=== PATIENT | male | born 1975 | race Caucasian/White ===

== ENCOUNTER 2025-07-22 16:05 | Inpatient (IN) | payer BC, SELFPAY ==
[2025-07-22] VITALS (10 sets, daily range): BP systolic 162–271; BP diastolic 105–184; PULSE 74–97; RESP 16–23; TEMP -13.3–37.2; O2SAT 95–97; BMI 47.5
--- NOTE | 2025-07-22 16:22 | EKG_ITS ---
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
--- NOTE | 2025-07-22 16:23 | PD.EDRME ---
Rapid Medical Screening Exam RME Arrival date/time: 07/22/25 16:05 49-year-old male with a history of hypertension presents to the emergency room with a chief complaint of chest discomfort, headaches and elevated blood pressure readings at home. Patient states he has been out of his blood pressure medication for a couple of months. I have greeted and performed a focused initial assessment of this patient. A comprehensive ED assessment and evaluation of the patient, analysis of all test results, and completion of the medical decision making process will be conducted by additional ED providers. Chief Complaint: General Adult/Misc Complain Time Seen by Provider: 07/22/25 16:18 Vital signs reviewed by provider: Yes
--- NOTE | 2025-07-22 16:37 | XR_ITS ---
EXAMINATION: AP chest single view TECHNIQUE: AP portable upright chest single view Date and time: July 22, 2025, 1644 hours INDICATIONS: Onset shortness of breath today with hypertension. FINDINGS: Mild prominence cardiac contour. No pneumonia or pulmonary edema. The osseous structures are intact IMPRESSION: No pneumonia or pulmonary edema
--- NOTE | 2025-07-22 16:40 | EDNOTE_ITS ---
ED General RME/HPI General Chief complaint: General Adult/Misc Complain Stated complaint: BP high Time Seen by Provider: 07/22/25 16:18 Arrival date/time: 07/22/25 16:05 CC: Headaches HPI ongoing for the past 3 months but has been out of his antihypertension meds for the past 5 months. Patient also states he has had some wavy vision but no floaters, patient thinks his last medications were losartan and metoprolol poorly. Patient has an allergy to amlodipine. Patient denies chest pain shortness of breath difficulty breathing nausea vomiting diarrhea. RME / HPI RME / HPI narrative: 07/22/25 16:05 49-year-old male with a history of hypertension presents to the emergency room with a chief complaint of chest discomfort, headaches and elevated blood pressure readings at home. Patient states he has been out of his blood pressure medication for a couple of months. I have greeted and performed a focused initial assessment of this patient. A comprehensive ED assessment and evaluation of the patient, analysis of all test results, and completion of the medical decision making process will be conducted by additional ED providers. Related Data Allergies Allergy/AdvReac Type Severity Reaction Status Date / Time amlodipine Allergy Unknown Verified 07/22/25 16:09 Past Medical History Social History SMOKING STATUS: Never smoker ED Exam Narrative Physical exam: [General: Morbidly obese not in any acute distress Head normocephalic HEENT: Eyes pupils are PERRLA EOMs are intact mouth pink moist membranes uvula is midline swallow symmetrical phonation is normal. All of the subsystems of HEENT are within acceptable limits Neck is supple nontender Chest equal chest rise nontender to palpation Respiratory: Clear to auscultation no wheezes crackles or rubs CV: Rate rhythm is regular no murmurs rubs or clicks Abdomen is distended secondary to body habitus soft nontender no masses positive bowel sounds all 4 quadrants Back: No CVA tenderness no spinous process tenderness from cervical spine thoracic and lumbar spine Skin: Venous insufficiency type skin noted in the lower extremities just proximal to the ankles. No open lesions to the lower extremities. Otherwise skin is intact no petechiae rash induration ulceration or crepitus Extremities: Moving all extremity against resistance cap refill less than 2 seconds neurosensory intact nonpitting edema Neuro: Awake alert oriented x3 Glascow coma 15 no focal deficits] Course Course Course Narrative: Blood pressure was decreased by 25%. Creatinine 1.62+ protein in the urine. No other acute findings patient continues to have a mild headache was given 1 g of Tylenol. This, I discussed the patient's case with the resident for Dr. Smalls agrees to accept the patient for admission for hypertensive emergency. Quality Measures none Orders Category Date Time Status EKG (ED ONLY) *Do not use* NOW Care 07/22/25 16:22 Completed Saline [Insert IV] NOW Care 07/22/25 16:38 Active EKG (ED Only) Stat Exams 07/22/25 16:22 Draft XR chest 1V Stat Exams 07/22/25 16:37 Completed B-Type Natriuretic Peptide Stat Lab 07/22/25 16:39 Completed CBC Stat Lab 07/22/25 16:39 Completed Comprehensive Metabolic Panel Stat Lab 07/22/25 16:39 Completed Drug Screen,Urine Stat Lab 07/22/25 18:20 Completed LDH (Lactate Dehydrogenase) Stat Lab 07/22/25 16:39 Completed Magnesium Stat Lab 07/22/25 16:39 Completed Partial Thromboplastin Time Stat Lab 07/22/25 16:39 Completed Prothrombin Time with INR Stat Lab 07/22/25 16:39 Completed Troponin I Stat Lab 07/22/25 16:39 Completed Urinalysis, C/S if Indicated Stat Lab 07/22/25 18:20 Completed Acetaminophen Tab [Tylenol ES Tab] Med 07/22/25 18:42 Discontinued 1,000 mg PO X1 ONE Labetalol IV [Trandate IV] Med 07/22/25 17:45 Discontinued 10 mg IVP X1 ONE hydrALAZINE INJ [Apresoline Inj] Med 07/22/25 16:38 Discontinued 20 mg IVP X1 ONE Vital Signs Vital signs: Vital Signs Temperature 98.9 F 07/22/25 16:22 Pulse Rate 97 07/22/25 16:22 Respiratory Rate 18 07/22/25 16:22 Blood Pressure 247/160 H 07/22/25 16:22 Pulse Oximetry (%) 97 07/22/25 16:22 Oxygen Delivery Method Room Air 07/22/25 16:22 Discharge Plan Plan Patient Disposition: Other Care w/in Hosp ([facility]) Prescriptions/Referrals Referrals: No Primary/Family,Physician [Primary Care Provider] - In 1 week Problem List Clinical Impression: Hypertensive emergency, Headache Patient/Caregiver Discharge Instructions Print Language: South Korean Stand Alone Forms: Anneliese Award Info., Patient Portal Info Letter ELIAS/CATHI Supervising Physician JEANETTE Supervising Physician: Juan Pablo Gleason ENP [facility] Clinical Information Provided by: patient Medical Records reviewed [facility] Meds/Rx considered, not ordered None Labs/Rad/Tests considered, not ordered None Chronic Illness/Social Conditions Explain: Obesity hypertension with medication noncompliance EKG Interpretation EKG #1: EKG Interpretation: EKG performed at 1626 shows a ventricular rate of 99 [place] interval 156 QRS of 84 QTc of 408 this is sinus rhythm. Labs Labs: interpreted by il Lab(s) Interpretation(s): CBC shows no acute leukocytosis anemia thrombocytopenia Coags within acceptable limits CMP shows creatinine of 1.6 glucose of 110 no other electrolyte imbalances no transaminitis or T. bili elevation LDH at 355 Troponin and BNP are within acceptable limits. Imaging Imaging interpretation: interpreted by il Imaging Interpretation(s): Chest x-ray is unremarkable. Medication Administration(s) Medication Administration History Discontinued Medications Acetaminophen (Acetaminophen 500 Mg Tablet) 1,000 mg PO X1 ONE Stop: 07/22/25 18:43 Last Admin: 07/22/25 18:53 Dose: 1,000 mg Documented By: LP Hydralazine HCl (Hydralazine Inj 20 Mg/Ml Vial) 20 mg IVP X1 ONE Stop: 07/22/25 16:39 Last Admin: 07/22/25 16:49 Dose: 20 mg Documented By: BJORN Labetalol HCl (Labetalol Inj 5 Mg/Ml Vial 20 Ml) 10 mg IVP X1 ONE Stop: 07/22/25 17:46 Last Admin: 07/22/25 18:05 Dose: 10 mg Documented By: LP
[2025-07-22] MEDS: hydrALAZINE INJ 20 MG/ML VIAL IVP (16:49)
[2025-07-22 17:00] LABS: Basophils # (Auto) 0.1 Thou/mm3 (0.0-0.2); Basophils % (Auto) 1 % (0-2.5); Eosinophils # (Auto) 0.2 Thou/mm3 (0.0-0.5); Eosinophils % (Auto) 2 % (0-10); Hematocrit 45.6 % (41.0-53.0); Hemoglobin 16.5 g/dL (13.5-16.0); Immature Granulocytes Auto 0.03 Thou/mm3 (0.00-0.00); Lymphocytes # (Auto) 2.4 Thou/mm3 (1.0-4.8); Lymphocytes % (Auto) 24 % (10-50); Mean Corpuscular HGB Conc 36.2 g/dl (31.0-37.0); Mean Corpuscular Hemoglobin 31.7 pg (25.0-35.0); Mean Corpuscular Volume 88 fL (80-100); Monocytes # (Auto) 0.8 Thou/mm3 (0.0-0.8); Monocytes % (Auto) 8 % (0-12); Neutrophils # (Auto) 6.4 Thou/mm3 (1.8-7.7); Neutrophils % (Auto) 65 % (37-80); Nucleated Red Blood Cell # 0.00 Thou/mm3 (0.00-0.00); Nucleated Red Blood Cell % 0 /100 WBC (0); Platelet Count 195 Thou/mm3 (140-440); RDW Standard Deviation 38.1 fL (35.1-43.9); Red Blood Count 5.21 Miln/mm3 (4.50-5.90); White Blood Count 9.8 Thou/mm3 (3.8-10.6)
[2025-07-22 17:04] LABS: INR 1.0 (0.9-1.3); Partial Thromboplastin Time 29.3 Seconds (22.0-36.0); Prothrombin Time 10.5 Seconds (9.0-12.2)
[2025-07-22 17:07] LABS: Alanine Aminotransferase 15 U/L (10-49); Albumin, Serum 4.3 gm/dL (3.5-5.0); Albumin/Globulin Ratio 1.3 (1.2-2.2); Alkaline Phosphatase 96 U/L (46-116); Anion Gap 10 (7-16); Aspartate Amino Transferase 30 U/L (0-34); BUN/Creatinine Ratio 9 Ratio (12-20); Bilirubin,Total 0.9 mg/dL (0.3-1.2); Blood Urea Nitrogen 15 mg/dL (9-23); Calcium 9.4 mg/dL (8.3-10.6); Calcium (Corrected) 9.4 mg/dL (8.5-10.1); Carbon Dioxide 29.2 mMol/L (20.0-31.0); Chloride 101 mMol/L (98-107); Creatinine (Component) 1.6 mg/dL (0.6-1.3); Globulin 3.2 gm/dL (2.3-3.5); Glucose 110 mg/dL (74-106); LDH (Lactate Dehydrogenase) 355 U/L (120-246); Magnesium 2.0 mg/dL (1.6-2.6); Osmolality,Calculated 281 (275-295); Potassium 3.6 mMol/L (3.4-5.1); Sodium 140 mMol/L (136-145); Total Protein 7.5 gm/dL (5.7-8.2); Troponin I < 0.020 ng/mL (0.0-0.045); eGFR 53 See Note
[2025-07-22 17:22] LABS: B-Type Natriuretic Peptide 27 pg/mL (0-100)
[2025-07-22] MEDS: LABETALOL INJ 5 MG/ML VIAL 20 ML 10 MG IVP (18:05)
[2025-07-22 18:29] LABS: Collection Type, Urine Clean Catch; Squamous Epithelial Cell,Urine 0 /hpf (0-5)
[2025-07-22 18:42] LABS: Amphetamine/Methamp Scrn,U Negative (Negative); Barbiturate Screen,Urine Negative (Negative); Benzodiazepines Screen,Urine Negative (Negative); Benzoylecgonine Screen, Ur Negative (Negative); Fentanyl Screen,Urine Negative (Negative); Opiate Screen,Urine Negative (Negative); THC Screen,Urine Negative (Negative)
[2025-07-22] MEDS: ACETAMINOPHEN 500 MG TABLET 1000 MG PO (18:53)
[2025-07-22 18:59] LABS: Bilirubin,Urine Negative (Negative); Blood,Urine Trace (Negative); Clarity,Urine Clear (Clear/Hazy); Color,Urine Lt-Yellow (Lt Yel-Yel); Culture Indicated,Urine Not Indicated; Glucose, Urine Negative (Negative); Ketones,Urine Trace (Negative); Leukocyte Esterase,Urine Negative (Negative); Nitrite,Urine Negative (Negative); PH,Urine 7.5 (5.0-7.0); Protein,Urine 2+ (Neg - Trace); RBC,Urine 9 /hpf (0-3); Specific Gravity,Urine 1.013 (1.001-1.035); Urobilinogen,Urine Negative mg/dL (0.0-1.0); WBC,Urine < 1 /hpf (0-5)
--- NOTE | 2025-07-22 19:53 | ECHO_ITS ---
Transthoracic Echo Report Ht (in): 74 Wt (lb): 370 Exam Location: [facility] Status: Emergency Chemist Internship: Magdalena Vásquez Indications: Procedure Performed: BP: 198 / 139 HR: 63 MEASUREMENTS (Male / Female) Normal Values 2D ECHO LV Diastolic Diameter PLAX 5.2 cm 4.2 - 5.9 / 3.9 - 5.3 cm LV Systolic Diameter PLAX 3.4 cm IVS Diastolic Thickness 1.3 cm 0.6 - 1.0 / 0.6 - 0.9 cm LVPW Diastolic Thickness 1.4 cm 0.6 - 1.0 / 0.6 - 0.9 cm LV Relative Wall Thickness 0.5 LVOT Diameter 2.1 cm LA Volume Index 23.5 cm?/m? 16 - 28 cm?/m? Ascending Aorta Diameter 3.2 cm M-MODE AV Cusp Separation MM 1.5 cm DOPPLER AV Peak Velocity 145.0 cm/s AV Peak Gradient 8.4 mmHg AV Mean Gradient 5.0 mmHg AV Velocity Time Integral 32.3 cm LVOT Peak Velocity 115.0 cm/s LVOT Peak Gradient 5.3 mmHg LVOT Velocity Time Integral 28.3 cm LVOT Cardiac Index 2031.0 cm?/min?m? AV Area Cont Eq vti 3.0 cm? AV Area Cont Eq pk 2.7 cm? MV Area PHT 3.7 cm? Mitral E Point Velocity 84.9 cm/s Mitral A Point Velocity 110.0 cm/s Mitral E to A Ratio 0.8 LV E' Lateral Velocity 6.5 cm/s Mitral E to LV E' Lateral Ratio 13.0 LV E' Septal Velocity 7.8 cm/s Mitral E to LV E' Septal Ratio 10.8 TR Peak Velocity 159.5 cm/s TR Peak Gradient 10.2 mmHg PV Peak Velocity 100.0 cm/s PV Peak Gradient 4.0 mmHg FINDINGS Left Ventricle Normal left ventricular size, wall thickness, systolic function with no obvious regional wall motion abnormalities.there is grade I diastolic dysfunction of the left ventricle (impaired relaxation pattern). The ejection fraction is visually estimated at 55-60%. Right Ventricle The right ventricle is normal in size and systolic function. Left Atrium The left atrial cavity size is moderately increased. Right Atrium The right atrial cavity size is moderately increased. Atrial Septum The interatrial septum appears normal with no evidence of a shunt. Aorta The aorta is normal by two-dimensional, color flow and Doppler interrogation. Mitral Valve The mitral valve is normal by two-dimensional, color flow and Doppler interrogation. Trace mitral regurgitation. Aortic Valve The aortic valve is trileaflet and normal by two-dimensional, color flow and Doppler interrogation. There is no significant aortic valve regurgitation. Tricuspid Valve The tricuspid valve is normal by two-dimensional, color flow and Doppler interrogation. There is trace tricuspid valve regurgitation. Pulmonic Valve The pulmonic valve is not well visualized. There is no significant pulmonic valve regurgitation. Vessels The pulmonary artery appears normal. The inferior vena cava pulmonary and hepatic veins appear normal. Pericardium There is a tiny, hemodynamically insignificant pericardial effusion without cardiac tamponade CONCLUSIONS Indication: Hx afib Normal left ventricular size and function. Grade I diastolic dysfuntion. Estimated EF 55-60% Normal right ventricular size and function. Normal RVSP. Moderately dilated LA and mildly dilated RA Trace mitral and trace tricuspid regurgitation noted. Markus Abrahamumanevans (Electronically Signed) Final Date: 24 July 2025 19:04
--- NOTE | 2025-07-22 20:09 | ESHP_ITS ---
Documentation for date of: 07/22/25 [facility] History of Present Illness History of present illness: Mr. Gardner is a 49 y/o male with PMH afib, HTN, chronic venous insufficiency who presented to the ED 07/22 with elevated BP and headache. Associated with wavy vision and floaters, frontal b/l headache that is throbbing and constant, progressively worsening over 2 months. Noticed sBP >240 at home, though he does not take his BP regularly at home. Patient switched insurance, used to see [place] providers, but has not seen a PCP in ~4-5 months, has not taken meds in this time frame. Previously saw PCP every 6 months. Denies jaw pain/claudication, paresthesias, weakness, dizziness, speech deficits, confusion, chest pain/pressure, urinary sx, nausea, vomiting, shortness of breath, dyspnea. Denies pmhx of [place], stroke/TIA, DVT, CHF. Denies recent illness/hospitalization, acute head injury. Patient has a hx of afib, previously on metoprolol, but denies being on blood thinner. He occasionally gets palpitations that last <5 seconds, several times per day, not associated strictly with activity or rest, for several years. Has never noticed his HR >110. Notes a previous episode of BRADY? requiring short hospitalization years ago. ED course: Afebrile. BP 247/65 --> 271/184 --> 209/139, HR WNL. Tachypneic to low 20s. spO2 appropriate on RA. Labs significant for hgb 16.5, Cr 1.6, eGFR 53, LDH 355. Coags, troponin, BNP, UDS, CXR unremarkable. EKG NSR HR 99, QTc 452. Given Hydralazine 20 mg IV, Labetalol 10 mg IV, Tylenol 1 g PO. PMHx: afib, HTN, chronic venous insufficiency Allergies: Amlodipine Home meds: Was taking Metoprolol and Losartan previously, has not taken in 4-5 months. Never been on Eliquis of other blood thinner. SgHx: none SHx: Denies smoking, EtOH, recreational drug use. Lives in [place] with his mother, has adult children. 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 FHx: Father - quadruple bypass; brother - throat cancer, Review of Systems Review of Systems Narrative Review of Systems: 14 point ROS negative other than HPI Exam Vital Signs Temp Pulse Resp BP Pulse Ox O2 Del Method 98.9 F 87 16 218/140 H 97 Room Air 07/22/25 19:21 07/22/25 19:21 07/22/25 19:21 07/22/25 19:21 07/22/25 19:21 07/22/25 19:21 Narrative Exam General: No acute distress, well nourished Eye: PERRL, EOMI, normal conjunctiva, no scleral icterus HENT: Normocephalic, atraumatic, normal hearing, moist oral mucosa Neck: Supple, non-tender, no JVD, no lymphadenopathy Lungs: Clear to auscultation bilaterally, non-labored respirations, symmetric chest rise, no use of accessory muscles Heart: Normal S1 and S2, no S3 or S4 appreciated. Normal rate and regular rhythm, no murmurs, rubs gallops. 2+ LE pitting edema b/l to lewis Abdomen: Soft, non-tender, non-distended, normal bowel sounds. No guarding or rebound tenderness. Musculoskeletal: Normal range of motion and strength, no tenderness or swelling Skin: Skin is warm, dry, no rashes or lesions. venous stasis dermatitis b/l LE Neurologic: Alert, awake and oriented x3. CN II-XII grossly intact. No focal neuro deficits. No signs of meningeal irritation noted. Psychiatric: Cooperative, appropriate mood and affect Results: Labs 07/22/25 16:39 07/22/25 16:39 Labs: Short CBC 07/22/25 Range/Units 16:39 WBC 9.8 (3.8-10.6) Thou/mm3 Hgb 16.5 H (13.5-16.0) g/dL Hct 45.6 (41.0-53.0) % Plt Count 195 (140-440) Thou/mm3 BMP 07/22/25 16:39 Sodium 140 Potassium 3.6 Chloride 101 Carbon Dioxide 29.2 BUN 15 Creatinine 1.6 H Glucose 110 H Calcium 9.4 Cardiac Enzymes 07/22/25 Range/Units 16:39 Troponin I < 0.020 (0.0-0.045) ng/mL Liver Function 07/22/25 Range/Units 16:39 Total Bilirubin 0.9 (0.3-1.2) mg/dL AST 30 (0-34) U/L ALT 15 (10-49) U/L Alkaline Phosphatase 96 (46-116) U/L Albumin 4.3 (3.5-5.0) gm/dL Urine 07/22/25 Range/Units 18:20 Urine Color Lt-Yellow (Lt Yel-Yel) Urine Clarity Clear (Clear/Hazy) Urine pH 7.5 H (5.0-7.0) Ur Specific Alloy 1.013 (1.001-1.035) Urine Protein 2+ A (Neg - Trace) Urine Glucose (UA) Negative (Negative) Quality Measures Quality Measures none Medications Home Medications and Allergies Allergies Allergy/AdvReac Type Severity Reaction Status Date / Time amlodipine Allergy Unknown Verified 07/22/25 16:09 Visit Medications Acetaminophen (Acetaminophen 325 Mg Tablet) 650 mg PO Q6H PRN PRN Reason: Fever >100.3 Stop: 08/21/25 19:50 Acetaminophen (Acetaminophen 325 Mg Tablet) 650 mg PO Q6H PRN PRN Reason: PAIN SCALE 1-3 (mild Stop: 08/21/25 19:50 Heparin Sodium (Porcine) (Heparin Sod Inj 5000 Unit/Ml Vial) 5,000 unit SC Q8HR STEPHAN Stop: 08/05/25 21:59 Labetalol HCl (Labetalol Inj 5 Mg/Ml Vial 20 Ml) 20 mg IVP X1 ONE Stop: 07/22/25 20:03 Ondansetron HCl (Ondansetron Inj 2 Mg/Ml Inj 2 Ml) 4 mg IVP Q6H PRN; Protocol PRN Reason: NAUSEA OR VOMITING Stop: 08/21/25 19:50 Discontinued Medications Acetaminophen (Acetaminophen 500 Mg Tablet) 1,000 mg PO X1 ONE Stop: 07/22/25 18:43 Last Admin: 07/22/25 18:53 Dose: 1,000 mg Hydralazine HCl (Hydralazine Inj 20 Mg/Ml Vial) 20 mg IVP X1 ONE Stop: 07/22/25 16:39 Last Admin: 07/22/25 16:49 Dose: 20 mg Labetalol HCl (Labetalol Inj 5 Mg/Ml Vial 20 Ml) 10 mg IVP X1 ONE Stop: 07/22/25 17:46 Last Admin: 07/22/25 18:05 Dose: 10 mg Assessment & Plan Plan Mr. Gardner is a 49 y/o male with PMH afib, HTN, chronic venous insufficiency who presented to the ED 07/22 with elevated BP 247/165 and headache. Admitted for hypertensive emergency management. #Hypertensive Urgency vs emergency Initial presentation: b/l frontal headache, acute vision changes (wavy vision, floaters) BP in ED: 247/165 --> 271/184 --> 209/139 MAP in ED: 189 --> 213 --> 166 HR in ED: WNL (<100) End organ damage: BRADY (Cr 1.6, eGFR 53) LDH 355. No s/sx stroke, intracerebral hemorrhage, acute aortic dissection, acute coronary syndrome. Patient has b/l LE pitting edema i/s/o chronic venous insufficiency with BNP unremarkable, no shortness of breath/orthopnea, unlikely CHF. Given Hydralazine 20 mg IV, Labetalol 10 mg IV in ED Plan: - Labetalol IV 10-20 mg over 1-2 minutes followed by 20-80 mg q10min until target BP reached. - MAP goal: Reduce MAP gradually by ~10%-20% over first hour, then by additional 5-15% over next 23 hours, unless there is a compelling indication (ie. acute aortic dissection, severe preeclampsia, eclampsia) for more rapid BP and HR control. (maintain MAP 140-182). - CT head not indicated at this time given no focal neuro findings #BRADY versus CKD Most likely prerenal given HTN emergency Cr 1.6, eGFR 53 No hx CKD, no previous Cr recorded in EMR Plan: - Management of HTN emergency as above - CTM with daily BMP - Hold on IVF given HTN emergency - Avoid NSAIDs, other nephrotoxic agents - Pending Renal US - Pending 24 hr urine protein, electrolytes, Cr #Hx afib? Not seen on EKG, HR WNL. Previously rx Metoprolol, never on blood thinners. Has occasional palpitations, lasts <5 seconds, several times per day. CHADS-VASC: 2 --> 2.2% stroke risk per year, 2.9% TIA/stroke/systemic embolism HAS-BLED: 1 --> 3.4% risk bleeding Plan: - Continuous cardiac monitoring - Pending echo - Heparin DVT ppx. Can consider starting Eliquis #Chronic venous insufficiency b/l LE 2+ pitting edema, venous stasis dermatitis present. No open ulcers, no s/sx infection Plan: - CTM, f/u outpatient Checklist Dispo: Admit to tele for continuous cardiac monitoring Diet: Cardiac Bowel Reg: n/a VTE ppx: heparin subQ GI ppx: n/a Pain mgmt: Tylenol PRN Code status: full Plan discussed with Dr. Liao and Dr. Slim Thomas MD PGY1 Attending Provider Attestation/Addendum Hadley, Stacey Smalls, , attest that I was physically present for the hartmann portions of the service and evaluated the patient with the resident and I reviewed and discussed the case with the resident and agree with the resident's findings and plans of care as documented above Patient is a 49 yo male with PmHx of ?afib, HTN, chronic venous insufficiency who presented to the ED due to elevated BP and headache. Patient states that he lost his insurance a few months ago and has been unable to seek medical care. He had taken metoprolol and losartan and stopped about 5 months ago after he lost his insurance. Patient states he has been having a mild headache that progressively worse today. He reported some floaters in his vision as well, prompting him to check his BP and noted his systolic to be in the 240s. Upon evaluation in the ED, patient was noted to have elevated BP as high as 271/184. He received hydralazine and labetalol with appropriate decrease of BP with reduction goal under 25-30% of MAP in first several hours. Patient is noted to have a Cr of 1.6 with 2+ proteinuria on UA. No baseline labs to determine if patient has BRADY versus CKD. However, patient likely has underlying CKD due to longstanding HTN and reason for taking losartan in the past. Will admit to telemetry for further workup and management of hypertensive urgency. Patient has no focal neurological deficits. He denies any back or chest pain, shortness of breath, numbness, weakness or dizziness. He is noted to have 2+ pitting pedal edema ascending above his ankles due to chronic venous insufficiency. Patient currently in sinus rhythm. Will continue cardiac monitoring to assess for possible arrhythmias/ afib. . Will restart metoprolol in AM as patient is currently at goal with slow reduction of BP. Will order renal US and obtain 24h urine collection of protein and cr. Will also obtain echocardiogram.
--- NOTE | 2025-07-22 20:33 | XR_ITS ---
Examination: Retroperitoneal ultrasound, complete Technique: Multiple high resolution grayscale images of the retroperitoneum obtained, including kidneys and bladder. Exam date and time: July 22, 2025, 2043 hours INDICATIONS: Severe hypertension beginning 5 years ago FINDINGS: Right kidney 11.9 cm renal cortex 1.8 cm Multiple benign cysts, the largest 4.1 cm Left kidney 11.9 cm renal cortex 2.0 cm Multiple benign cysts, the largest 3.0 cm Moderate renal scar formation bilaterally Contracted urinary bladder Prostate 4.8 x 3.6 x 4.5 cm volume 40.8 cc no prostate nodules IMPRESSION: Moderate bilateral renal parenchymal scar formation No hydronephrosis Prostate volume 40.8 cc no prostate nodules
[2025-07-22] MEDS: LABETALOL INJ 5 MG/ML VIAL 20 ML 20 MG IVP (20:41)
[2025-07-22 21:18] LABS: Chloride,Urine Random 107.0 mMol/L (55.0-125.0); Creatinine MALB Rnd Ur 67 mg/dL (30-125); Potassium,Urine Random 23 mMol/L (12-62); Sodium,Urine Random 141.0 mMol/L (20.0-110.0)
[2025-07-22 21:27] LABS: Microalbumin Creat Ratio 2030 mg/gCrea (<30); Microalbumin, Random Urine 1360 mg/L (0-300)
[2025-07-22] MEDS: HEPARIN SOD INJ 5000 UNIT/ML VIAL SC (23:07)
[2025-07-23] VITALS (13 sets, daily range): BP systolic 171–218; BP diastolic 106–139; PULSE 65–91; RESP 16–20; TEMP 35.9–36.2; O2SAT 97–100; BMI 49.6
[2025-07-23] MEDS: HEPARIN SOD INJ 5000 UNIT/ML VIAL SC ×3 (05:43→21:24)
[2025-07-23 06:14] LABS: Basophils # (Auto) 0.1 Thou/mm3 (0.0-0.2); Basophils % (Auto) 1 % (0-2.5); Eosinophils # (Auto) 0.2 Thou/mm3 (0.0-0.5); Eosinophils % (Auto) 2 % (0-10); Hematocrit 40.5 % (41.0-53.0); Hemoglobin 14.4 g/dL (13.5-16.0); Immature Granulocytes Auto 0.03 Thou/mm3 (0.00-0.00); Lymphocytes # (Auto) 2.5 Thou/mm3 (1.0-4.8); Lymphocytes % (Auto) 29 % (10-50); Mean Corpuscular HGB Conc 35.6 g/dl (31.0-37.0); Mean Corpuscular Hemoglobin 31.6 pg (25.0-35.0); Mean Corpuscular Volume 89 fL (80-100); Monocytes # (Auto) 0.8 Thou/mm3 (0.0-0.8); Monocytes % (Auto) 9 % (0-12); Neutrophils # (Auto) 5.2 Thou/mm3 (1.8-7.7); Neutrophils % (Auto) 59 % (37-80); Nucleated Red Blood Cell # 0.00 Thou/mm3 (0.00-0.00); Nucleated Red Blood Cell % 0 /100 WBC (0); Platelet Count 162 Thou/mm3 (140-440); RDW Standard Deviation 39.7 fL (35.1-43.9); Red Blood Count 4.56 Miln/mm3 (4.50-5.90); White Blood Count 8.8 Thou/mm3 (3.8-10.6)
[2025-07-23 06:43] LABS: Anion Gap 11 (7-16); BUN/Creatinine Ratio 8 Ratio (12-20); Blood Urea Nitrogen 12 mg/dL (9-23); Calcium 9.1 mg/dL (8.3-10.6); Carbon Dioxide 29.5 mMol/L (20.0-31.0); Cardiac Risk Estimate 4.7 RATIO (4.0-6.7); Chloride 101 mMol/L (98-107); Cholesterol 178 mg/dL (132-200); Creatinine (Component) 1.5 mg/dL (0.6-1.3); Estimated Creatinine Clearance 102.9 mL/min (>60); Glucose 95 mg/dL (74-106); HDL Cholesterol 38 mg/dL (40-60); LDL Cholesterol,Calculated 112 mg/dL (0-130); Magnesium 2.1 mg/dL (1.6-2.6); Osmolality,Calculated 280 (275-295); Phosphorous 4.1 mg/dL (2.4-5.1); Potassium 3.4 mMol/L (3.4-5.1); Sodium 141 mMol/L (136-145); Thyroid Stimulating Hormone 3.03 uIU/mL (0.55-4.78); Triglycerides 142 mg/dL (30-150); eGFR 57 See Note
[2025-07-23 08:27] LABS: Glucose Estimated Average 103 mg/dL (80-131); Hemoglobin A1C 5.2 % Hgb (4.8-6.0)
[2025-07-23] MEDS: METOPROLOL SUCCINATE XL 25 MG TABCR PO (08:30)
--- NOTE | 2025-07-23 09:29 | ESPR_ITS ---
<Statement entered by Rashi Fall MD - 07/23/25 18:12> I saw and examined patient personally and supervised PGY 1 resident, Dr. Obregon formulating a management plan. I agree with the documentation with the exceptions as listed below. Mr. Gardner is a 49 y/o male with PMH afib, HTN, chronic venous insufficiency who presented to the ED 07/22 with elevated BP 247/165 and headache. Admitted for hypertensive emergency management. Problem list: 1. Hypertensive emergency?resolving 2. Hypertension, primary versus secondary 3. Versus CKD 4. History of chronic venous insufficiency 5. Obesity class III 6.? IDA versus OHS Patient has insurance issues and was unable to take his medication for the past 6 months. Presented to the ED with chief complaints of headache and nausea. Highest recorded blood pressure in the emergency department was 271/184. After hydralazine 20 Mg IV x 1 rate improved to 162/105. Upon further questioning patient also revealed that his mother had a history of uncontrolled hypertension as well. Patient's hypertensive emergency is now improving and he was started on metoprolol succinate 25 mg p.o. daily today. Currently BP improved to 171/117. Will monitor kidney function prior to starting losartan tomorrow. Secondary causes of his hypertension are also being worked up with IDA being the most likely cause. Surrounding aldosterone, renin and metanephrines were also ordered. Plan of care discussed with Attending Dr. Saturnino Fall MD PGY 2 Disclaimer: This note was dictated by speech recognition. Minor errors in titrator may be present due to voice recognition software. Documentation for date of: 07/23/25 Subjective Subjective Interval history: Patient was examined at bedside; they appear A&Ox4 and in NAD. Labs today significant for Hgb 16.5 -> 14.4, creatinine 1.6 -> 1.5, and LDH 355. Physical exam was notable for venous stasis dermatitis with a few varicose veins of the proximal BLE but was otherwise benign and unremarkable. UA showed basic pH 7.5, 2+ protein, random microalbumin 1360 (significant protein leakage suggesting kidney damage), random sodium 141.0, microalbumin/creatinine ratio 2030 (strongly indicative of kidney disease, possibly hypertensive nephrosclerosis). Renal US showed moderate bilateral parenchymal scar formation and multiple benign kidney cysts bilaterally. Plan Updates: -Started PO metoprolol succinate Xl 25 mg qD -Started IV hydralazine 10 mg q4HR prn for SBP>180 -Ordered urine random sodium, random potassium, random chloride, random creatinine, random total protein, and urine osmolality -Ordered cortisol, plasma renin activity, and urine metanephrines Exam Vital Signs Temp Pulse Resp BP Pulse Ox O2 Del Method 97.0 F 91 20 198/122 H 100 Room Air 07/23/25 07:58 07/23/25 08:30 07/23/25 07:58 07/23/25 09:08 07/23/25 07:58 07/23/25 07:58 Narrative Exam General: No acute distress, well nourished Eye: PERRL, EOMI, normal conjunctiva, no scleral icterus HENT: Normocephalic, atraumatic, normal hearing, moist oral mucosa Neck: Supple, non-tender, no JVD, no lymphadenopathy Lungs: Clear to auscultation bilaterally, non-labored respirations, symmetric chest rise, no use of accessory muscles Heart: Normal S1 and S2, no S3 or S4 appreciated. Normal rate and regular rhythm, no murmurs, rubs gallops. 2+ LE pitting edema b/l to lewis Abdomen: Soft, non-tender, non-distended, normal bowel sounds. No guarding or rebound tenderness. Musculoskeletal: Normal range of motion and strength, no tenderness or swelling Skin: Skin is warm, dry, no rashes or lesions. venous stasis dermatitis b/l LE Neurologic: Alert, awake and oriented x3. CN II-XII grossly intact. No focal neuro deficits. No signs of meningeal irritation noted. Psychiatric: Cooperative, appropriate mood and affect Objective Labs 07/23/25 05:30 07/23/25 05:30 Labs: Laboratory Results - last 24 hr 07/22/25 07/22/25 07/23/25 16:39 18:20 05:30 WBC 9.8 8.8 RBC 5.21 4.56 Hgb 16.5 H 14.4 D Hct 45.6 40.5 L MCV 88 89 MCH 31.7 31.6 MCHC 36.2 35.6 RDW Std Deviation 38.1 39.7 Plt Count 195 162 D Neut % (Auto) 65 59 Lymph % (Auto) 24 29 [place] % (Auto) 8 9 Eos % (Auto) 2 2 Baso % (Auto) 1 1 Neut # (Auto) 6.4 5.2 Lymph # (Auto) 2.4 2.5 [place] # (Auto) 0.8 0.8 Eos # (Auto) 0.2 0.2 Baso # (Auto) 0.1 0.1 Immature Gran # (Auto) 0.03 H 0.03 H Absolute Nucleated RBC 0.00 0.00 Immature Gran % 0 0 Nucleated RBC % 0 0 PT 10.5 INR 1.0 APTT 29.3 Sodium 140 141 Potassium 3.6 3.4 Chloride 101 101 Carbon Dioxide 29.2 29.5 Anion Gap 10 11 BUN 15 12 Creatinine 1.6 H 1.5 H Estim Creat Clear Calc Not Performed. 102.9 eGFR 53 L 57 L BUN/Creatinine Ratio 9 L 8 L Glucose [address] Glu mg/dL 103 Hemoglobin A1c 5.2 Calculated Osmolality 281 280 Calcium 9.4 9.1 Corrected Calcium 9.4 Phosphorus 4.1 Magnesium 2.0 2.1 Total Bilirubin 0.9 AST 30 ALT 15 Alkaline Phosphatase 96 Lactate Dehydrogenase 355 H Troponin I < 0.020 B-Natriuretic Peptide 27 Total Protein 7.5 Albumin 4.3 Globulin 3.2 Albumin/Globulin Ratio 1.3 Triglycerides 142 Cholesterol 178 LDL Cholesterol, Calc 112 HDL Cholesterol 38 L Cholesterol/HDL Ratio 4.7 TSH 3.03 Ur Collection Type Clean Catch Urine Color Lt-Yellow Urine Clarity Clear Urine pH 7.5 H Ur Specific [place] 1.013 Urine Protein 2+ A Urine Glucose (UA) Negative Urine Ketones Trace Urine Blood Trace Urine Nitrite Negative Urine Bilirubin Negative Urine Urobilinogen (Auto) Negative Ur Leukocyte Esterase Negative Urine RBC 9 H Urine WBC < 1 Ur Squamous Epith Cells 0 Urine Bacteria None Ur Culture Indicated? Not Indicated Ur Random Microalbumin 1360 H Ur Random Sodium 141.0 H Ur Random Potassium 23 Ur Random Chloride 107.0 U Creat (Microalbumin) 67 Microalb/Creat Ratio 2030 H Urine Opiates Screen Negative Urine Fentanyl Screen Negative Ur Barbiturates Screen Negative U Amphetamin/Meth Scrn Negative U Benzodiazepines Scrn Negative U Cocaine Metab Screen Negative U Marijuana (THC) Screen Negative Quality Measures Quality Measures none Assessment & Plan Assessment Current Active Medications: Generic Name Dose Route Start Last Admin Trade Name Freq PRN Reason Stop Dose Admin Acetaminophen 650 mg 07/22/25 19:51 Acetaminophen 325 Mg Tablet PO 08/21/25 19:50 Q6H PRN Fever >100.3 Acetaminophen 650 mg 07/22/25 19:51 Acetaminophen 325 Mg Tablet PO 08/21/25 19:50 Q6H PRN PAIN SCALE 1-3 (mild Heparin Sodium (Porcine) 5,000 unit 07/22/25 22:00 07/23/25 05:43 Heparin Sod Inj 5000 Unit/Ml Vial SC 08/05/25 21:59 5,000 unit Q8HR STEPHAN Administration Labetalol HCl 10 mg 07/23/25 07:51 Labetalol Inj 5 Mg/Ml Vial 20 Ml IVP Q10MIN PRN SBP > 200 Metoprolol Succinate 25 mg 07/23/25 09:00 07/23/25 08:30 Metoprolol Succinate Xl 25 Mg Tabcr PO 08/22/25 08:59 25 mg QDAY STEPHAN Administration Ondansetron HCl 4 mg 07/22/25 19:51 Ondansetron Inj 2 Mg/Ml Inj 2 Ml IVP 08/21/25 19:50 Q6H PRN NAUSEA OR VOMITING Protocol Plan Mr. Gardner is a 49 y/o male with PMH afib, HTN, and chronic venous insufficiency who presented to the ED on 07/22 with elevated BP and headache and was admitted for hypertensive emergency. #Hypertensive emergency i/s/o medication noncompliance, resolving 07/23 admission BP of 247/165 that climbed as high as 271/184 with throbbing headache and signs of end organ damage (visual changes, creatinine 1.6) Had apparently been on home metoprolol and losartan which had adequately controlled his BP but has not taken them for 4-5 months Given IV hydralazine 20 mg and IV labetalol 10 mg in the ED ASCVD Score: 8.9% risk of cardiovascular event in next 10 years, moderate to high intensity statin recommended Rx: -Started PO metoprolol succinate XI 25 mg qD -Started IV hydralazine 10 mg q4HR prn for SBP>180 -Will consider starting losartan tomorrow based on kidney function #Hypertension, uncontrolled, primary vs. secondary Had apparently been on home metoprolol and losartan which had adequately controlled his BP but has not taken them for 4-5 months Currently favor IDA as most likely underlying etiology due to elevated Hgb of 16.5 and patient's risk factors: male sex, large neck, obesity class III, endorses snoring at night and daytime somnolence, and chronic nasal congestion DDx: IDA, renal artery stenosis, pheochromocytoma, primary hyperaldosteronism Dx: -Ordered cortisol labs, results pending -Ordered plasma renin activity, results pending -Ordered urine metanephrines, results pending Rx: -Started PO metoprolol succinate XI 25 mg qD -Started IV hydralazine 10 mg q4HR prn for SBP>180 -Will consider starting losartan tomorrow based on kidney function -Consider outpatient polysomnography to evaluate for IDA #BRADY vs. CKD i/s/o uncontrolled hypertension and recent hypertensive emergency 07/23 admission creatinine 1.6 (baseline unknown), eGFR 53 Suspect some level of CKD due to elevated random microalbumin 1360 and microalbumin/creatinine ratio 2030 which itself is possibly 2/2 hypertensive nephrosclerosis However, it is possible that the elevated creatinine is merely an BRADY 2/2 recent hypertensive emergency Renal US showed moderate bilateral parenchymal scar formation and multiple benign kidney cysts bilaterally No history of diabetes, A1c this admission 5.2 Dx: -Ordered urine random electrolytes, results pending -Ordered urine random creatinine, results pending -Ordered urine random total protein, results pending -Ordered urine osmolality, results pending Rx: -BP control as above -Monitor renal panel #Obesity class III Patient BMI 49.6 Dx: -Ordered lipid panel, results pending #History of atrial fibrillation Patient reports PMH of atrial fibrillation and home medication of metoprolol (which he has not taken in the past 4-5 months) but no Eliquis Rx: -Started PO metoprolol succinate XI 25 mg qD #History of chronic venous insufficiency Patient reports PMH of chronic venous insufficiency On exam, patient was noted to have venous stasis dermatitis of the bilateral lower extremities as well as some varicose veins Rx: -Follow up with outpatient vascular surgery Hospital Management: Disposition: admitted for work-up and management of hypertensive emergency Diet: Cardiac GI Prophylaxis: not indicated Bowel Prophylaxis: Senna DVT Prophylaxis: SC Heparin 5K q8HR CODE STATUS: Full Code I have examined the patient and conferred with my attending, Dr. Matamoros , and my senior resident, Dr. Fall, regarding them. Jorge Obregon, DO PGY-1 Internal Medicine Attending Provider Attestation/Addendum I have examined the patient, reviewed labs and imaging findings, discussed the case with the resident(s), and reviewed entered orders. I agree with the plan of care as outlined in this note, with these additional summaries/recommendations: Patient is a 49-year-old male with a medical history of primary hypertension, obesity, dyslipidemia, and chronic venous insufficiency presents to [facility] emergency department on 07/22/2025 with chief complaint of headache and elevated blood pressure. Patient seen at bedside. He still endorses headache although improved. We will continue Tylenol for now and patient advised to notify nurse if headache is worsening. Patient admitted for hypertensive emergency. Endorgan damage with blurry vision and BRADY. Resume home metoprolol. We will continue to adjust oral regimen as needed and continue IV PRNs. Patient was counseled on medication noncompliance. He was also advised he would benefit from sleep study outpatient. Patient diagnosed with BRADY. On admission creatinine 1.6 and eGFR 53. Most likely related to hypertensive nephrosclerosis. Patient does have elevated micro albumin/creatinine ratio and would benefit from the addition of an BELEN/ARB. Will consider starting tomorrow pending improvement in renal function. Renal ultrasound does show bilateral scar formation. Patient was counseled on weight loss and diet changes. A1c within normal limits. Patient updated on the plan and in agreement. All questions answered to satisfaction. Please see residents note for additional details and management. Dr. Saturnino MD
[2025-07-23] MEDS: ACETAMINOPHEN 325 MG TABLET 650 MG PO ×3 (11:45→23:39)
--- NOTE | 2025-07-23 12:06 | PC.SS ---
Patient Fredy Colindres is a 49 year old male admitted for HTN Emergency. SS met [facility] patient and patient's , Mariama Villatoro at bedside to discuss discharge plan and verify demographic information. Patient reports his is surrogate decision maker, . Patient reports she does not utilize any source of DME to assist with ambulation and does not utilize any source of DME to assist with ambulation. Choice of pharmacy, [facility]. Patient does have a PCP. At time of discharge patient will return back home. will provide transportation. Discharge plan: Home Next of kin: , Mariama Villatoro
--- NOTE | 2025-07-23 15:30 | PC.SS ---
Update Note Blood pressure being monitored, possible discharge home within 1-2 days.
[2025-07-23] MEDS: hydrALAZINE INJ 20 MG/ML VIAL 10 MG IVP ×2 (19:58→23:40)
[2025-07-23] MEDS: LABETALOL INJ 5 MG/ML VIAL 20 ML 10 MG IVP (21:22)
[2025-07-24] VITALS (11 sets, daily range): BP systolic 164–182; BP diastolic 99–122; PULSE 54–95; RESP 10–16; TEMP 35.9–36.1; O2SAT 95–96; BMI 49.9
--- NOTE | 2025-07-24 01:05 | XR_ITS ---
Examination: CT brain head without contrast. 2-D sagittal coronal reconstructions Date and time of exam: July 24, 2025, 0135 hours INDICATIONS: Hypertensive emergency today with worsening headache CTDI: vol (mGy): 62.5 DLP: (mGycm): 1307 Technique: Multiple CT axial sections of the brain have been obtained, 5 mm slice thickness. Contrast has not been administered. 2-D sagittal, coronal reconstructions have been obtained Low dose protocols were performed. One or more of the following dose reduction techniques were used; automated exposure control, adjustment of the mA and/or KV according to patient size, use of iterative reconstruction technique. Findings: No significant ventricular enlargement. Intra-axial or extra-axial hemorrhage density is not seen. No mass effect or midline shift Basal cisterns are not remarkable. Fourth ventricle is midline. Cranial vault intact. Impression: Negative for acute hemorrhage, mass effect or midline shift
[2025-07-24] MEDS: ONDANSETRON INJ 2 MG/ML INJ 2 ML 4 MG IVP ×2 (01:22→04:21)
[2025-07-24] MEDS: MORPHINE SULF INJ 4 MG/ML VIAL 2 MG IVP (01:23)
--- NOTE | 2025-07-24 02:11 | PRELIM_ITS ---
CT scan of the head without intravenous contrast (axial sections with sagittal and coronal reformats) July 24, 2025 0135 hours Clinical history: Worsening headache, vision, hypertension emergency. Radiation Dose: Total exam DLP 1309 mGy/cm. Comparison: No prior study is available for comparison. Findings: There is no evidence of intracranial hemorrhage, mass effect or midline shift. There are periventricular white matter hypodensities, compatible with chronic small vessel ischemia. There is mild volume loss. The calvarium is unremarkable. The mastoid air cells and the visualized paranasal sinuses are clear. There is mild high parietal scalp swelling. Impression: 1. No evidence of intracranial hemorrhage, mass effect or midline shift. 2. Periventricular chronic small vessel ischemia and volume loss. 3. Mild high parietal scalp swelling. 4. Other findings as described above. Suggest clinical correlation and follow up accordingly. Report Electronically Signed By: Michi Dominguez 07/24/2025 2:10:37 AM [EST]
[2025-07-24] MEDS: hydrALAZINE INJ 20 MG/ML VIAL 10 MG IVP ×2 (04:08→09:27)
[2025-07-24] MEDS: KETOROLAC INJ 30 MG/ML VIAL IVP (04:21)
[2025-07-24 06:22] LABS: Creatinine, Urine Volume 2725 mL/24hr (600-1800); Protein Total, Urine Volume 2725 mL/24hr (600-1800)
[2025-07-24 06:27] LABS: Chloride,Urine Random 57.8 mMol/L (55.0-125.0); Creatinine,Random Urine 71 mg/dL (30-125); Potassium,Urine Random 16 mMol/L (12-62); Protein Total, Random Urine 175 mg/dL (1-14); Sodium,Urine Random 82.2 mMol/L (20.0-110.0)
[2025-07-24 06:27] LABS: Creatinine, 24 Hour Urine 1.9 gm/24hr (1.0-2.5); Creatinine,Urine 70 mg/dL (30-125); Protein Total, 24 hr Urine 4714 mg/24hr (<149); Protein Total, Urine 173 mg/dL (1-14)
[2025-07-24 07:52] LABS: Basophils # (Auto) 0.1 Thou/mm3 (0.0-0.2); Basophils % (Auto) 1 % (0-2.5); Eosinophils # (Auto) 0.0 Thou/mm3 (0.0-0.5); Eosinophils % (Auto) 0 % (0-10); Hematocrit 46.9 % (41.0-53.0); Hemoglobin 16.4 g/dL (13.5-16.0); Immature Granulocytes Auto 0.05 Thou/mm3 (0.00-0.00); Lymphocytes # (Auto) 1.8 Thou/mm3 (1.0-4.8); Lymphocytes % (Auto) 18 % (10-50); Mean Corpuscular HGB Conc 35.0 g/dl (31.0-37.0); Mean Corpuscular Hemoglobin 31.5 pg (25.0-35.0); Mean Corpuscular Volume 90 fL (80-100); Monocytes # (Auto) 0.5 Thou/mm3 (0.0-0.8); Monocytes % (Auto) 5 % (0-12); Neutrophils # (Auto) 7.5 Thou/mm3 (1.8-7.7); Neutrophils % (Auto) 75 % (37-80); Nucleated Red Blood Cell # 0.00 Thou/mm3 (0.00-0.00); Nucleated Red Blood Cell % 0 /100 WBC (0); Platelet Count 207 Thou/mm3 (140-440); RDW Standard Deviation 40.7 fL (35.1-43.9); Red Blood Count 5.21 Miln/mm3 (4.50-5.90); White Blood Count 9.9 Thou/mm3 (3.8-10.6)
[2025-07-24 07:55] LABS: Misc Send Out* See Sep Rpt
[2025-07-24 08:18] LABS: Albumin, Serum 4.2 gm/dL (3.5-5.0); Anion Gap 9 (7-16); BUN/Creatinine Ratio 11 Ratio (12-20); Blood Urea Nitrogen 14 mg/dL (9-23); Calcium 9.3 mg/dL (8.3-10.6); Carbon Dioxide 28.3 mMol/L (20.0-31.0); Chloride 101 mMol/L (98-107); Creatinine (Component) 1.3 mg/dL (0.6-1.3); Estimated Creatinine Clearance 119.2 mL/min (>60); Glucose 126 mg/dL (74-106); Magnesium 2.3 mg/dL (1.6-2.6); Osmolality,Calculated 278 (275-295); Phosphorous 2.9 mg/dL (2.4-5.1); Potassium 4.2 mMol/L (3.4-5.1); Sodium 138 mMol/L (136-145); eGFR > 60 See Note
[2025-07-24] MEDS: METOPROLOL SUCCINATE XL 25 MG TABCR PO (09:27)
[2025-07-24 09:34] LABS: HIV (1&2) Antibody Rapid Non-Reactive
--- NOTE | 2025-07-24 09:41 | PC.SS ---
Update: Possible renal biopsy, nephrology is consulting.
[2025-07-24 09:51] LABS: Hepatitis A Antibody IgM Non Reactive (Non React); Hepatitis B Core Antibody IgM Non Reactive (Non React); Hepatitis B Surface Antigen Non Reactive (Non React); Hepatitis C Antibody Non Reactive (Non React)
--- NOTE | 2025-07-24 10:36 | PC.NURSE ---
called MD to let them know that US does not do biopsies but CT does, Md will order renal biopsy through CT
[2025-07-24] MEDS: LOSARTAN POTASSIUM 25 MG TABLET 50 MG PO (12:06)
--- NOTE | 2025-07-24 13:07 | ESCONSULT_ITS ---
HPI Data of Consult Consult date: 07/24/25 Requesting Physician: Nicolas Matamoros MD Admitting Provider: Stacey Smalls DO Attending Provider: Nicolas Matamoros MD Primary Care Provider: Physician No Primary/Family Consult Narrative Reason for consult: Proteinuria; possible nephrotic syndrome History of present illness: Mr. Gardner is a 49-year-old male with a past medical history of atrial fibrillation, hypertension, and chronic venous insufficiency who was admitted on 07/22/2025 with hypertensive emergency (BP 271/184) and headache. Nephrology was consulted for evaluation of proteinuria and possible nephrotic syndrome. Today, the patient was seen and examined. He reports no complaints, denies shortness of breath, chest pain, nausea, vomiting, dysuria, or hematuria. He states that he had a right kidney biopsy more than 8 years ago in [facility]. He recalls being told that he had a kidney disease similar to his mother?s, who was diagnosed with nephrotic syndrome?he believes the term ?FSGS? sounds familiar, though he is not certain. He currently denies any new symptoms, reports adequate urine output, and no recent change in weight. There is bilateral lower extremity edema; however, he has known venous insufficiency, making the etiology uncertain. No orthopnea or paroxysmal nocturnal dyspnea reported. Appetite and energy level are stable. 07/24/2025: Patient doing well today, sitting comfortably in bed, no complaints. Denies dyspnea, chest pain, or urinary symptoms. Appetite and urine output remain normal. BP 179/104, HR 64 bpm. Labs: WBC 9.9, Hgb 16.4 (from 14.4 yesterday), MCV 90, Platelets 207, Na 138, K 4.2, Cl 101, CO2 28, Cr 1.3 (down from 1.6 on admission 07/22/25), Ca 9.3, Mg 2.3, Phos 2.9, Albumin 4.2, A1c 5.2. UTOX: negative. Hepatitis panel & HIV: negative. Urine Studies: 24-hour urine total protein 4714 mg (nephrotic range), urine total protein (spot) 173 mg, total urine volume 2725 mL. Renin activity, aldosterone, and cortisol pending. Renal Ultrasound Findings: Right kidney 11.9 cm, cortex 1.8 cm; multiple benign cysts (largest 4.1 cm). Left kidney 11.9 cm, cortex 2.0 cm; multiple benign cysts (largest 3.0 cm). Moderate bilateral renal parenchymal scarring. No hydronephrosis. Prostate volume 40.8 cc, no nodules. Impression: Moderate bilateral renal parenchymal scar formation; no hydronephrosis. cc:: cc: Nicolas Matamoros MD Exam Vital Signs Temp Pulse Resp BP Pulse Ox O2 Del Method 96.6 F L 64 16 179/104 H 96 Room Air 07/24/25 12:00 07/24/25 12:06 07/24/25 12:00 07/24/25 12:06 07/24/25 12:00 07/24/25 12:00 Narrative Exam General: Alert, oriented ?3, in no acute distress. HEENT: No scleral icterus or conjunctival pallor. Neck: No JVD. Lungs: Clear to auscultation bilaterally. Cardiac: Regular rate and rhythm; no murmurs, rubs, or gallops. Abdomen: Soft, non-tender, non-distended. Extremities: Trace to 1+ pitting edema bilaterally; chronic venous stasis changes. Skin: Warm, dry, no rashes. Neuro: No focal deficits. Results Labs 07/25/25 04:45 07/25/25 04:45 Labs: Short CBC 07/24/25 Range/Units 07:35 WBC 9.9 (3.8-10.6) Thou/mm3 Hgb 16.4 H D (13.5-16.0) g/dL Hct 46.9 (41.0-53.0) % Plt Count 207 D (140-440) Thou/mm3 BMP 07/24/25 07:35 Sodium 138 Potassium 4.2 D Chloride 101 Carbon Dioxide 28.3 BUN 14 Creatinine 1.3 Glucose 126 H Calcium 9.3 Liver Function 07/24/25 Range/Units 07:35 Albumin 4.2 (3.5-5.0) gm/dL Quality Measures Quality Measures VTE prophylaxis Medications Home Medications and Allergies Home Medications ?Medication ?Instructions ?Recorded ?Confirmed ?Type losartan 25 mg tablet 50 mg PO QDAY 07/23/2507/23 History metoprolol tartrate 25 mg tablet 50 mg PO BID 07/23/25 07/23/25 History Allergies Allergy/AdvReac Type Severity Reaction Status Date / Time amlodipine Allergy Unknown Verified 07/25/25 07:54 Visit Medications Acetaminophen (Acetaminophen 325 Mg Tablet) 650 mg PO Q6H PRN PRN Reason: Fever >100.3 Stop: 08/21/25 19:50 Acetaminophen (Acetaminophen 325 Mg Tablet) 650 mg PO Q6H PRN PRN Reason: PAIN SCALE 1-3 (mild Stop: 08/21/25 19:50 Last Admin: 07/23/25 23:39 Dose: 650 mg Heparin Sodium (Porcine) (Heparin Sod Inj 5000 Unit/Ml Vial) 5,000 unit SC Q8HR STEPHAN Stop: 08/05/25 21:59 Last Admin: 07/24/25 06:00 Dose: Not Given Hydralazine HCl (Hydralazine Inj 20 Mg/Ml Vial) 10 mg IVP Q4HR PRN PRN Reason: SBP >180 Stop: 08/22/25 17:58 Last Admin: 07/24/25 09:27 Dose: 10 mg Losartan Potassium (Losartan Potassium 25 Mg Tablet) 50 mg PO QDAY STEPHAN Stop: 08/23/25 11:59 Last Admin: 07/24/25 12:06 Dose: 50 mg Metoprolol Succinate (Metoprolol Succinate Xl 25 Mg Tabcr) 25 mg PO QDAY STEPHAN Stop: 08/23/25 08:59 Last Admin: 07/24/25 09:27 Dose: 25 mg Ondansetron HCl (Ondansetron Inj 2 Mg/Ml Inj 2 Ml) 4 mg IVP Q6H PRN; Protocol PRN Reason: NAUSEA OR VOMITING Stop: 08/21/25 19:50 Last Admin: 07/24/25 01:22 Dose: 4 mg Sennosides (Senna Tablet) 1 tab PO QDAY PRN; Protocol PRN Reason: CONSTIPATION Stop: 08/22/25 18:07 Discontinued Medications Acetaminophen (Acetaminophen 500 Mg Tablet) 1,000 mg PO X1 ONE Stop: 07/22/25 18:43 Last Admin: 07/22/25 18:53 Dose: 1,000 mg Hydrocodone Bitart/Acetaminophen (Hydrocodone/Apap 5/325 Tablet) 1 tab PO X1 ONE Stop: 07/24/25 03:59 Last Admin: 07/24/25 04:15 Dose: Not Given Hydralazine HCl (Hydralazine Inj 20 Mg/Ml Vial) 20 mg IVP X1 ONE Stop: 07/22/25 16:39 Last Admin: 07/22/25 16:49 Dose: 20 mg Ketorolac Tromethamine (Ketorolac Inj 30 Mg/Ml Vial) 30 mg IVP X1 ONE Stop: 07/24/25 04:13 Last Admin: 07/24/25 04:21 Dose: 30 mg Labetalol HCl (Labetalol Inj 5 Mg/Ml Vial 20 Ml) 10 mg IVP X1 ONE Stop: 07/22/25 17:46 Last Admin: 07/22/25 18:05 Dose: 10 mg Labetalol HCl (Labetalol Inj 5 Mg/Ml Vial 20 Ml) 20 mg IVP X1 ONE Stop: 07/22/25 20:03 Last Admin: 07/22/25 20:41 Dose: 20 mg Labetalol HCl (Labetalol Inj 5 Mg/Ml Vial 20 Ml) 10 mg IVP Q10MIN PRN PRN Reason: SBP > 200 Labetalol HCl (Labetalol Inj 5 Mg/Ml Vial 20 Ml) 10 mg IVP X1 ONE Stop: 07/23/25 20:46 Last Admin: 07/23/25 21:22 Dose: 10 mg Metoclopramide HCl (Metoclopramide Inj 5 Mg/Ml Vial 2 Ml) 10 mg IVP X1 ONE; Protocol Stop: 07/24/25 09:27 Last Admin: 07/24/25 10:28 Dose: Not Given Metoprolol Succinate (Metoprolol Succinate Xl 25 Mg Tabcr) 25 mg PO QDAY STEPHAN Stop: 08/22/25 08:59 Last Admin: 07/23/25 08:30 Dose: 25 mg Morphine Sulfate (Morphine Sulf Inj 4 Mg/Ml Vial) 2 mg IVP X1 ONE Stop: 07/24/25 01:06 Last Admin: 07/24/25 01:23 Dose: 2 mg Ondansetron HCl (Ondansetron Inj 2 Mg/Ml Inj 2 Ml) 4 mg IVP Q4HR PRN; Protocol PRN Reason: NAUSEA OR VOMITING Stop: 08/23/25 04:12 Ondansetron HCl (Ondansetron Inj 2 Mg/Ml Inj 2 Ml) 4 mg IVP X1 ONE; Protocol Stop: 07/24/25 04:14 Last Admin: 07/24/25 04:21 Dose: 4 mg Assessment & Plan Plan 49-year-old male with history of uncontrolled hypertension, atrial fibrillation, and chronic venous insufficiency, admitted for hypertensive emergency, found to have nephrotic-range proteinuria and suspected nephrotic syndrome. # Proteinuria # Possible Nephrotic Syndrome # Nephrotic range proteinuria Significant proteinuria (24-hour total 4.7 g) with normal albumin level and no hyperlipidemia. No diabetes (A1c 5.2). Family history of nephrotic syndrome (mother), unconfirmed. Prior renal biopsy >8 years ago reportedly in [place]; possible FSGS. Plan: * Ordered renal biopsy to confirm etiology (possible FSGS vs other glomerulopathy). * Pending ALEXANDRE, C3, C4, renin activity, aldosterone, and cortisol levels. * Continue to monitor renal function and urine output daily. * Avoid nephrotoxins (NSAIDs, IV contrast). * BP control as per primary team; optimize for renal protection. * Will review biopsy results once available and adjust management accordingly. # Hypertensive Nephrosclerosis vs Secondary Hypertensive Injury # Bilateral Renal Cortical Scarring Admission Cr 1.6 -> improved to 1.3. BP remains elevated today (179/104). Ultrasound shows moderate bilateral scarring and benign cysts. Kidneys preserved in size (11.9 cm bilaterally) Plan: * Continue BP control * Resume ARB once renal function remains stable. * Continue beta-prashant per primary team. * Monitor daily BMP. * Continue monitoring renal function. * Follow up renal biopsy. # Hypokalemic Metabolic Alkalosis Likely secondary to mineralocorticoid excess (primary hyperaldosteronism vs secondary hyperreninemia from renal artery stenosis). Yesterday's labs CO2 29.5 with relative hypokalemia 3.4. Plan: * Pending plasma renin activity and aldosterone levels. * Avoid unnecessary diuretics. * Replace potassium as needed. # Chronic Venous Insufficiency Mild bilateral LE edema, possibly contributing to lower extremity swelling. Plan: * Recommend compression stockings, leg elevation. * Differentiate venous edema from possible nephrotic edema once biopsy returns. ----- Plan discussed with attending physician Dr. Robert Nguyen MD PGY-1 Internal Medicine Attending Provider Attestation/Addendum Patient seen and examined with resident physician Dr. Nguyen. Note reviewed, agree with findings and recommendations. Patient with nephrotic range proteinuria-kidney biopsy ordered for tomorrow. Spoke to primary team
--- NOTE | 2025-07-24 14:38 | ESPR_ITS ---
Documentation for date of: 07/24/25 Senior Resident Attestation: I have discussed the case with supervising physician and intern retail physician involved in the care of patient. I personally saw and examined patient and discussed the assessment and plan with the entire medical team, including attending. I agree with assessment and plan as documented above. Overnight, patient continues to have systolic blood pressure greater than 180. Patient was given labetalol and hydralazine. In addition patient was also given headache likely secondary to tension. Patient was started on losartan 50 mg daily. Continue metoprolol 25 daily. Proteinuria, nephrology consulted with concern for CKD. Given renal ultrasound showing moderate bilateral renal parenchymal plaque formation, CKD likely, no prerenal BRADY cannot be ruled out. Creatinine downtrending from 1.5-1.3 with improved GFR. Currently patient is NPO for renal CT biopsy. Autoimmune markers ordered. Follow-up with nephrology recommendations. Freya Mcqueen MD PGY-2 Internal Medicine Subjective Subjective Interval history: Overnight, patient remained hypertensive and required multiple hydralazine injections which did not seem very effective in reducing his BP. He was also given morphine for his ongoing headache which he says was not only ineffective but made him nauseous. Patient was examined at bedside; he appears A&Ox4 and in NAD. Vitals/labs today significant for BP 182/112 and creatinine 1.5 -> 1.3. Physical exam was benign and remained unchanged from yesterday. Urine 24HR total protein came back elevated at 4714, demonstrating nephrotic range proteinuria. Plan Updates: -Started PO losartan 50 mg qD -Will consider adding on nifedipine or amlodipine if BP remains elevated -Scheduled for US-guided renal biopsy tomorrow -NPO after midnight -Ordered ALEXANDRE -Ordered C3/C4 complement labs -Ordered hepatitis panel and HIV serology -Consider nighttime BiPAP/CPAP Exam Vital Signs Temp Pulse Resp BP Pulse Ox O2 Del Method 96.6 F L 64 16 179/104 H 96 Room Air 07/24/25 12:00 07/24/25 12:06 07/24/25 12:00 07/24/25 12:06 07/24/25 12:00 07/24/25 12:00 Narrative Exam General: No acute distress, well nourished Eye: PERRL, EOMI, normal conjunctiva, no scleral icterus HENT: Normocephalic, atraumatic, normal hearing, moist oral mucosa Neck: Supple, non-tender, no JVD, no lymphadenopathy Lungs: Clear to auscultation bilaterally, non-labored respirations, symmetric chest rise, no use of accessory muscles Heart: Normal S1 and S2, no S3 or S4 appreciated. Normal rate and regular rhythm, no murmurs, rubs gallops. 2+ LE pitting edema b/l to lewis Abdomen: Soft, non-tender, non-distended, normal bowel sounds. No guarding or rebound tenderness. Musculoskeletal: Normal range of motion and strength, no tenderness or swelling Skin: Skin is warm, dry, no rashes or lesions. venous stasis dermatitis b/l LE Neurologic: Alert, awake and oriented x3. CN II-XII grossly intact. No focal neuro deficits. No signs of meningeal irritation noted. Psychiatric: Cooperative, appropriate mood and affect Objective Labs 07/25/25 04:45 07/25/25 04:45 Labs: Laboratory Results - last 24 hr 07/23/25 07/24/25 07/24/25 04:45 04:45 04:45 WBC RBC Hgb Hct MCV MCH MCHC RDW Std Deviation Plt Count Neut % (Auto) Lymph % (Auto) Mchenry % (Auto) Eos % (Auto) Baso % (Auto) Neut # (Auto) Lymph # (Auto) Mchenry # (Auto) Eos # (Auto) Baso # (Auto) Immature Gran # (Auto) Absolute Nucleated RBC Immature Gran % Nucleated RBC % Sodium Potassium Chloride Carbon Dioxide Anion Gap BUN Creatinine Estim Creat Clear Calc eGFR BUN/Creatinine Ratio Glucose Calculated Osmolality Calcium Phosphorus Magnesium Albumin Ur Random Creatinine 71 U Random Total Protein 175 H Ur Random Sodium 82.2 Ur Random Potassium 16 Ur Random Chloride 57.8 Urine Total Volume 2725 H 2725 H Ur Creatinine mg% 70 Ur Creatinine 24 Hour 1.9 U Total Protein mg/dL 173 H Ur Total Protein 24 Hr 4714 H Hepatitis A IgM Ab Hep Bs Antigen Hep B Core IgM Ab Hepatitis C Antibody HIV 1&2 Antibody Rapid 07/24/25 07:35 WBC 9.9 RBC 5.21 Hgb 16.4 H D Hct 46.9 MCV 90 MCH 31.5 MCHC 35.0 RDW Std Deviation 40.7 Plt Count 207 D Neut % (Auto) 75 Lymph % (Auto) 18 Mchenry % (Auto) 5 Eos % (Auto) 0 Baso % (Auto) 1 Neut # (Auto) 7.5 Lymph # (Auto) 1.8 Mchenry # (Auto) 0.5 Eos # (Auto) 0.0 Baso # (Auto) 0.1 Immature Gran # (Auto) 0.05 H Absolute Nucleated RBC 0.00 Immature Gran % 1 H Nucleated RBC % 0 Sodium 138 Potassium 4.2 D Chloride 101 Carbon Dioxide 28.3 Anion Gap 9 BUN 14 Creatinine 1.3 Estim Creat Clear Calc 119.2 eGFR > 60 BUN/Creatinine Ratio 11 L Glucose 126 H Calculated Osmolality 278 Calcium 9.3 Phosphorus 2.9 Magnesium 2.3 Albumin 4.2 Ur Random Creatinine U Random Total Protein Ur Random Sodium Ur Random Potassium Ur Random Chloride Urine Total Volume Ur Creatinine mg% Ur Creatinine 24 Hour U Total Protein mg/dL Ur Total Protein 24 Hr Hepatitis A IgM Ab Non Reactive Hep Bs Antigen Non Reactive Hep B Core IgM Ab Non Reactive Hepatitis C Antibody Non Reactive HIV 1&2 Antibody Rapid Non-Reactive Quality Measures Quality Measures VTE prophylaxis Assessment & Plan Assessment Current Active Medications: Generic Name Dose Route Start Last Admin Trade Name Freq PRN Reason Stop Dose Admin Acetaminophen 650 mg 07/22/25 19:51 Acetaminophen 325 Mg Tablet PO 08/21/25 19:50 Q6H PRN Fever >100.3 Acetaminophen 650 mg 07/22/25 19:51 07/23/25 23:39 Acetaminophen 325 Mg Tablet PO 08/21/25 19:50 650 mg Q6H PRN Administration PAIN SCALE 1-3 (mild Heparin Sodium (Porcine) 5,000 unit 07/22/25 22:00 07/24/25 14:00 Heparin Sod Inj 5000 Unit/Ml Vial SC 08/05/25 21:59 Not Given Q8HR STEPHAN Hydralazine HCl 10 mg 07/23/25 17:59 07/24/25 09:27 Hydralazine Inj 20 Mg/Ml Vial IVP 08/22/25 17:58 10 mg Q4HR PRN Administration SBP >180 Losartan Potassium 50 mg 07/24/25 12:00 07/24/25 12:06 Losartan Potassium 25 Mg Tablet PO 08/23/25 11:59 50 mg QDAY STEPHAN Administration Metoprolol Succinate 25 mg 07/24/25 09:00 07/24/25 09:27 Metoprolol Succinate Xl 25 Mg Tabcr PO 08/23/25 08:59 25 mg QDAY STEPHAN Administration Ondansetron HCl 4 mg 07/22/25 19:51 07/24/25 01:22 Ondansetron Inj 2 Mg/Ml Inj 2 Ml IVP 08/21/25 19:50 4 mg Q6H PRN Administration NAUSEA OR VOMITING Protocol Sennosides 1 tab 07/23/25 18:08 Senna Tablet PO 08/22/25 18:07 QDAY PRN CONSTIPATION Protocol Plan Mr. Gardner is a 49 y/o male with PMH afib, HTN, and chronic venous insufficiency who presented to the ED on 07/22 with elevated BP and headache and was admitted for hypertensive emergency. #Hypertensive emergency i/s/o medication noncompliance, resolving #Hypertension Hypertension, uncontrolled, primary vs. secondary 07/23 admission BP of 247/165 that climbed as high as 271/184 with throbbing headache and signs of end organ damage (visual changes, creatinine 1.6) Had apparently been on home metoprolol and losartan which had adequately controlled his BP but has not taken them for 4-5 months Given IV hydralazine 20 mg and IV labetalol 10 mg in the ED ASCVD Score: 8.9% risk of cardiovascular event in next 10 years, moderate to high intensity statin recommended Rx: -Started PO losartan 50 mg qD -Will consider adding on nifedipine or amlodipine if BP remains elevated -Ordered cortisol labs, results pending -Ordered plasma renin activity, results pending -Ordered urine metanephrines, results pending -Continue PO metoprolol succinate XI 25 mg qD -Started IV hydralazine 10 mg q4HR prn for SBP>180 #BRADY vs. CKD Stage I i/s/o uncontrolled hypertension and recent hypertensive emergency 2/2 #Hypertensive nephrosclerosis vs. secondary hypertensive injury #Nephrotic range proteinuria 07/23 admission creatinine 1.6 (baseline unknown), eGFR 53 Suspect some level of CKD due to elevated random microalbumin 1360 and microalbumin/creatinine ratio 2030 which itself is possibly 2/2 hypertensive nephrosclerosis Creatinine eventually down-trended from 1.5 -> 1.3 with eGFR > 60 on 07/24, suggesting that patient still retains a decent amount of kidney function and is at most CKD Stage I Renal US showed moderate bilateral parenchymal scar formation and multiple benign kidney cysts bilaterally No history of diabetes, A1c this admission 5.2 Per Nephrology, some possible differentials for patient's intrinsic kidney disease may include FSGS or other glomerulopathies Dx: -Ordered US-guided renal biopsy tomorrow, results pending -Ordered ALEXANDRE, results pending -Ordered C3/C4 complement labs, results pending -Ordered hepatitis panel and HIV serology, all negative -Consider nighttime BiPAP/CPAP -Ordered urine random electrolytes, showed Na 82.2, K 16, Cl 57.8 (all WNL) -Ordered urine random creatinine, showed 71 (WNL) -Ordered urine random total protein, showed 175 (elevated) -Ordered urine 24HR total portein, showed 4714 (nephrotic-range proteinuria) Rx: -NPO after midnight -BP control as above -Monitor renal panel #Obesity class III Patient BMI 49.6 Dx: -Ordered lipid panel, showed triglycerides 142, cholesterol 178, LDL 112, HDL 38 #History of chronic venous insufficiency Patient reports PMH of chronic venous insufficiency On exam, patient was noted to have venous stasis dermatitis of the bilateral lower extremities as well as some varicose veins Rx: -Follow up with outpatient vascular surgery Hospital Management: Disposition: admitted for work-up and management of hypertensive emergency and BRADY Diet: Cardiac GI Prophylaxis: not indicated Bowel Prophylaxis: Senna DVT Prophylaxis: SC Heparin 5K q8HR CODE STATUS: Full Code I have examined the patient and conferred with my attending, Dr. Matamoros , and my senior resident, Dr. Fall, regarding them. Jorge Obregon DO PGY-1 Internal Medicine Attending Provider Attestation/Addendum I have examined the patient, reviewed labs and imaging findings, discussed the case with the resident(s), and reviewed entered orders. I agree with the plan of care as outlined in this note, with these additional summaries/recommendations: Patient is a 49-year-old male with a medical history of primary hypertension, obesity, dyslipidemia, and chronic venous insufficiency presents to [facility] emergency department on 07/22/2025 with chief complaint of headache and elevated blood pressure. Patient seen at bedside. No acute overnight events. Patient still endorses headache. He reports headache is worse in the morning and he often wakes up tired. Counseled patient extensively he will need a sleep study to evaluate if patient has obstructive sleep apnea. Given his symptoms and uncontrolled blood pressure my clinical suspicion for IDA is high. Patient originally admitted for hypertensive emergency. Blood pressure improved but not yet at goal and systolic blood pressure trending in the 170s to 180s. We will adjust oral antihypertensive regimen today. Endorgan damage with blurry vision and BRADY. Patient was counseled on medication noncompliance and weight loss. Patient diagnosed with BRADY. On admission creatinine 1.6 and eGFR 53. Most likely related to hypertensive nephrosclerosis. Patient found to have significant proteinuria on urinalysis and we will start BELEN inhibitor. Given the severity of proteinuria we will consult nephrology and patient will go for kidney biopsy likely tomorrow 07/25/2025. Renal ultrasound does show bilateral scar formation. Patient was counseled on weight loss and diet changes. A1c within normal limits. Patient updated on the plan and in agreement. All questions answered to satisfaction. Please see residents note for additional details and management. Dr. Saturnino MD
[2025-07-24] MEDS: HEPARIN SOD INJ 5000 UNIT/ML VIAL SC (21:12)
[2025-07-25] VITALS (19 sets, daily range): BP systolic 151–197; BP diastolic 88–119; PULSE 47–83; RESP 10–18; TEMP 35.9–36.6; O2SAT 95–97; BMI 49.3
[2025-07-25] MEDS: hydrALAZINE INJ 20 MG/ML VIAL 10 MG IVP ×3 (04:22→20:34)
[2025-07-25 05:45] LABS: Basophils # (Auto) 0.1 Thou/mm3 (0.0-0.2); Basophils % (Auto) 1 % (0-2.5); Eosinophils # (Auto) 0.2 Thou/mm3 (0.0-0.5); Eosinophils % (Auto) 2 % (0-10); Hematocrit 45.4 % (41.0-53.0); Hemoglobin 15.7 g/dL (13.5-16.0); Immature Granulocytes Auto 0.04 Thou/mm3 (0.00-0.00); Lymphocytes # (Auto) 2.3 Thou/mm3 (1.0-4.8); Lymphocytes % (Auto) 24 % (10-50); Mean Corpuscular HGB Conc 34.6 g/dl (31.0-37.0); Mean Corpuscular Hemoglobin 31.5 pg (25.0-35.0); Mean Corpuscular Volume 91 fL (80-100); Monocytes # (Auto) 0.7 Thou/mm3 (0.0-0.8); Monocytes % (Auto) 8 % (0-12); Neutrophils # (Auto) 6.2 Thou/mm3 (1.8-7.7); Neutrophils % (Auto) 66 % (37-80); Nucleated Red Blood Cell # 0.00 Thou/mm3 (0.00-0.00); Nucleated Red Blood Cell % 0 /100 WBC (0); Platelet Count 206 Thou/mm3 (140-440); RDW Standard Deviation 41.4 fL (35.1-43.9); Red Blood Count 4.98 Miln/mm3 (4.50-5.90); White Blood Count 9.5 Thou/mm3 (3.8-10.6)
[2025-07-25 06:13] LABS: Anion Gap 11 (7-16); BUN/Creatinine Ratio 9 Ratio (12-20); Blood Urea Nitrogen 13 mg/dL (9-23); Calcium 9.2 mg/dL (8.3-10.6); Carbon Dioxide 26.7 mMol/L (20.0-31.0); Chloride 101 mMol/L (98-107); Creatinine (Component) 1.4 mg/dL (0.6-1.3); Estimated Creatinine Clearance 109.8 mL/min (>60); Glucose 102 mg/dL (74-106); Magnesium 2.3 mg/dL (1.6-2.6); Osmolality,Calculated 277 (275-295); Phosphorous 4.3 mg/dL (2.4-5.1); Potassium 3.7 mMol/L (3.4-5.1); Sodium 139 mMol/L (136-145); eGFR > 60 See Note
--- NOTE | 2025-07-25 07:28 | PC.NURSE ---
Pt. reports feeling nauseous, offered pt. Zofran. Pt. states that just makes it worse. RN states I will call the doctor and ask for something else but pt. stated no thank you, nothing helps. I think its from the morphine. pt. encouraged to call if he decides he wants medication or anything for the nausea. Pt. is independent and is walking to the bathroom. Pt. refuses help at this time but is instructed to call if help is needed/wanted.
[2025-07-25] MEDS: METOPROLOL SUCCINATE XL 25 MG TABCR PO (08:02)
[2025-07-25] MEDS: LOSARTAN POTASSIUM 25 MG TABLET 100 MG PO (08:02)
--- NOTE | 2025-07-25 08:10 | PC.NURSE ---
Per Dr. Mcqueen OK to hold Potassium for now until after biopsy due to nausea. RN to give Kdur Po after procedure with food.
--- NOTE | 2025-07-25 08:17 | PC.NURSE ---
consulted with hospitalist Dr. Mcqueen regarding order for medical kidney biopsy, order is currently for right kidney, states we can do medical kidney biopsy on left or right kidney, new order placed
--- NOTE | 2025-07-25 08:46 | PC.NURSE ---
Dr. salazar pt. is bradycardic at 54 on monitor but came back up to 66. Pt. is asymptomatic just resting. Dr. salazar and order to continue to monitor.
[2025-07-25 09:00] LABS: INR 1.0 (0.9-1.3); Partial Thromboplastin Time 29.6 Seconds (22.0-36.0); Prothrombin Time 11.1 Seconds (9.0-12.2)
--- NOTE | 2025-07-25 09:30 | ESPR_ITS ---
Documentation for date of: 07/25/25 Subjective Subjective Interval history: Reason for consult: Proteinuria; possible nephrotic syndrome History of present illness: Mr. Gardner is a 49-year-old male with a past medical history of atrial fibrillation, hypertension, and chronic venous insufficiency who was admitted on 07/22/2025 with hypertensive emergency (BP 271/184) and headache. Nephrology was consulted for evaluation of proteinuria and possible nephrotic syndrome. Today, the patient was seen and examined. He reports no complaints, denies shortness of breath, chest pain, nausea, vomiting, dysuria, or hematuria. He states that he had a right kidney biopsy more than 8 years ago in [facility]. He recalls being told that he had a kidney disease similar to his mother?s, who was diagnosed with nephrotic syndrome?he believes the term ?FSGS? sounds familiar, though he is not certain. He currently denies any new symptoms, reports adequate urine output, and no recent change in weight. There is bilateral lower extremity edema; however, he has known venous insufficiency, making the etiology uncertain. No orthopnea or paroxysmal nocturnal dyspnea reported. Appetite and energy level are stable. 07/24/2025: Patient doing well today, sitting comfortably in bed, no complaints. Denies dyspnea, chest pain, or urinary symptoms. Appetite and urine output remain normal. BP 179/104, HR 64 bpm. Labs: WBC 9.9, Hgb 16.4 (from 14.4 yesterday), MCV 90, Platelets 207, Na 138, K 4.2, Cl 101, CO2 28, Cr 1.3 (down from 1.6 on admission 07/22/25), Ca 9.3, Mg 2.3, Phos 2.9, Albumin 4.2, A1c 5.2. UTOX: negative. Hepatitis panel & HIV: negative. Urine Studies: 24-hour urine total protein 4714 mg (nephrotic range), urine total protein (spot) 173 mg, total urine volume 2725 mL. Renin activity, aldosterone, and cortisol pending. 07/25/2025: Patient was seen and examined at bedside. He was sleeping comfortably and in no acute distress. No new complaints reported per nursing staff. He is scheduled for renal biopsy later today. No shortness of breath, chest pain, nausea, or urinary complaints noted overnight. Vital Signs: BP 181/90, HR 79 bpm. Labs: WBC 9.5, Hgb 15.7, Hct 45, Plt 206, Na 139, K 3.7, Cl 101, CO? 26, BUN 13, Cr 1.4 (up slightly from 1.3 yesterday), Glucose 102, Ca 9.2, Mg 2.3, Phos 4.3. Renin, aldosterone, ALEXANDRE, C3, and other serologic tests remain pending. Urine output remains adequate. No new imaging today. Exam Vital Signs Temp Pulse Resp BP Pulse Ox O2 Del Method 96.8 F 54 L 18 171/103 H 95 Room Air 07/25/25 08:00 07/25/25 08:47 07/25/25 08:00 07/25/25 08:02 07/25/25 08:00 07/25/25 08:00 Narrative Exam General: Alert, oriented ?3, in no acute distress. HEENT: No scleral icterus or conjunctival pallor. Neck: No JVD. Lungs: Clear to auscultation bilaterally. Cardiac: Regular rate and rhythm; no murmurs, rubs, or gallops. Abdomen: Soft, non-tender, non-distended. Extremities: Trace to 1+ pitting edema bilaterally; chronic venous stasis changes. Skin: Warm, dry, no rashes. Neuro: No focal deficits. Objective Labs 07/25/25 04:45 07/25/25 04:45 Labs: Laboratory Results - last 24 hr 07/24/25 07/25/25 07/25/25 07:35 04:45 08:17 WBC 9.5 RBC 4.98 Hgb 15.7 Hct 45.4 MCV 91 MCH 31.5 MCHC 34.6 RDW Std Deviation 41.4 Plt Count 206 Neut % (Auto) 66 Lymph % (Auto) 24 Jackson % (Auto) 8 Eos % (Auto) 2 Baso % (Auto) 1 Neut # (Auto) 6.2 Lymph # (Auto) 2.3 Jackson # (Auto) 0.7 Eos # (Auto) 0.2 Baso # (Auto) 0.1 Immature Gran # (Auto) 0.04 H Absolute Nucleated RBC 0.00 Immature Gran % 0 Nucleated RBC % 0 PT 11.1 INR 1.0 APTT 29.6 Sodium 139 Potassium 3.7 D Chloride 101 Carbon Dioxide 26.7 Anion Gap 11 BUN 13 Creatinine 1.4 H Estim Creat Clear Calc 109.8 eGFR > 60 BUN/Creatinine Ratio 9 L Glucose 102 Calculated Osmolality 277 Calcium 9.2 Phosphorus 4.3 Magnesium 2.3 Hepatitis A IgM Ab Non Reactive Hep Bs Antigen Non Reactive Hep B Core IgM Ab Non Reactive Hepatitis C Antibody Non Reactive HIV 1&2 Antibody Rapid Non-Reactive Quality Measures Quality Measures VTE prophylaxis Assessment & Plan Assessment Current Active Medications: Generic Name Dose Route Start Last Admin Trade Name Freq PRN Reason Stop Dose Admin Acetaminophen 650 mg 07/22/25 19:51 Acetaminophen 325 Mg Tablet PO 08/21/25 19:50 Q6H PRN Fever >100.3 Acetaminophen 650 mg 07/22/25 19:51 07/23/25 23:39 Acetaminophen 325 Mg Tablet PO 08/21/25 19:50 650 mg Q6H PRN Administration PAIN SCALE 1-3 (mild Heparin Sodium (Porcine) 5,000 unit 07/22/25 22:00 07/25/25 06:15 Heparin Sod Inj 5000 Unit/Ml Vial SC 08/05/25 21:59 Not Given Q8HR STEPHAN Hydralazine HCl 10 mg 07/23/25 17:59 07/25/25 04:22 Hydralazine Inj 20 Mg/Ml Vial IVP 08/22/25 17:58 10 mg Q4HR PRN Administration SBP >180 Losartan Potassium 100 mg 07/25/25 09:00 07/25/25 08:02 Losartan Potassium 25 Mg Tablet PO 08/24/25 08:59 100 mg QDAY STEPHAN Administration Metoprolol Succinate 25 mg 07/24/25 09:00 07/25/25 08:02 Metoprolol Succinate Xl 25 Mg Tabcr PO 08/23/25 08:59 25 mg On Hold: 07/25/25 08:46 QDAY STEPHAN Administration Ondansetron HCl 4 mg 07/22/25 19:51 07/24/25 01:22 Ondansetron Inj 2 Mg/Ml Inj 2 Ml IVP 08/21/25 19:50 4 mg Q6H PRN Administration NAUSEA OR VOMITING Protocol Sennosides 1 tab 07/23/25 18:08 Senna Tablet PO 08/22/25 18:07 QDAY PRN CONSTIPATION Protocol Spironolactone 25 mg 07/26/25 09:00 Spironolactone 25 Mg Tablet PO 08/25/25 08:59 QDAY STEPHAN Plan 49-year-old male with uncontrolled hypertension, nephrotic-range proteinuria, and possible nephrotic syndrome, scheduled for renal biopsy today. Labs show mild uptrend in creatinine, stable electrolytes, and ongoing evaluation for secondary causes of hypertension and proteinuria. # Proteinuria # Possible Nephrotic Syndrome # Nephrotic range proteinuria Significant proteinuria (24-hour total 4.7 g) with normal albumin level and no hyperlipidemia. No diabetes (A1c 5.2). Family history of nephrotic syndrome (mother), unconfirmed. Prior renal biopsy >8 years ago reportedly in [place]; possible FSGS. Plan: * Ordered renal biopsy to confirm etiology (possible FSGS vs other glomerulopathy). * Proceed with renal biopsy today as planned. * Pending ALEXANDRE, C3, C4, renin activity, aldosterone, and cortisol levels. * Continue to monitor renal function and urine output daily. * Avoid nephrotoxins (NSAIDs, IV contrast). * BP control as per primary team; optimize for renal protection. * Will review biopsy results once available and adjust management accordingly. # Hypertensive Nephrosclerosis vs Secondary Hypertensive Injury # Bilateral Renal Cortical Scarring Admission Cr 1.6 -> improved to 1.4. BP remains elevated today (181/90). Ultrasound shows moderate bilateral scarring and benign cysts. Kidneys preserved in size (11.9 cm bilaterally) Plan: * Continue BP control * Resume ARB once renal function remains stable. * Continue beta-prashant per primary team. * Monitor daily BMP. * Continue monitoring renal function. * Follow up renal biopsy. # Hypokalemic Metabolic Alkalosis Likely secondary to mineralocorticoid excess (primary hyperaldosteronism vs secondary hyperreninemia from renal artery stenosis). Potassium 3.7 with bicarbonate 26 Plan: * Pending plasma renin activity and aldosterone levels. * Avoid unnecessary diuretics. * Replace potassium as needed. # Chronic Venous Insufficiency Mild bilateral LE edema, possibly contributing to lower extremity swelling. Plan: * Recommend compression stockings, leg elevation. * Differentiate venous edema from possible nephrotic edema once biopsy returns. ----- Plan discussed with attending physician Dr. Robert Nguyen MD PGY-1 Internal Medicine Attending Provider Attestation/Addendum Patient seen and examined with resident physician Dr. Nguyen. Note reviewed, agree with findings and recommendations. Kidney biopsy scheduled for today
--- NOTE | 2025-07-25 09:46 | ESPR_ITS ---
Documentation for date of: 07/25/25 Overnight patient continued to planing of headache morphine 2 mg IV push x 1 as well as ketorolac 30 mg IV push x 1-uncontrolled hypertension occasion. Metoprolol stopped as patient has been bradycardic. No medication on spironolactone 25 mg p.o. daily consider uptitrating based on patient's blood pressure tomorrow morning. Losartan 100 mg daily which is doubled patient's home dose. Pending workup for secondary hypertension including cortisol renin and aldosterone. Follow-up on immunology including ALEXANDRE screen. Hydralazine added as needed or may give labetalol as needed as needed CT guided renal biopsy did not go through as patient's blood pressure was greater than 140. Diet added per patient for 07/25/2025. N.p.o. after midnight. Order repeat renal biopsy on 07/26/2025. Senior Resident Attestation: I have discussed the case with supervising physician and information technology internship physician involved in the care of patient. I personally saw and examined patient and discussed the assessment and plan with the entire medical team, including attending. I agree with assessment and plan as documented . Freya Mcqueen MD PGY-2 Internal Medicine Subjective Subjective Interval history: No overnight events. Patient was examined at bedside; they appear A&Ox4 and in NAD. Labs today significant for BP 181/90 and creatinine 1.3 -> 1.4. Physical exam was benign and unremarkable. Patient was unable to get renal biopsy yesterday due to IR's concern that patient's SBP was >140. Plan Updates: -Holding metoprolol due to bradycardia -Started PO spironolactone 25 mg qD -Follow up on renal biopsy Exam Vital Signs Temp Pulse Resp BP Pulse Ox O2 Del Method 96.8 F 54 L 18 171/103 H 95 Room Air 07/25/25 08:00 07/25/25 08:47 07/25/25 08:00 07/25/25 08:02 07/25/25 08:00 07/25/25 08:00 Narrative Exam General: No acute distress, well nourished Eye: PERRL, EOMI, normal conjunctiva, no scleral icterus HENT: Normocephalic, atraumatic, normal hearing, moist oral mucosa Neck: Supple, non-tender, no JVD, no lymphadenopathy Lungs: Clear to auscultation bilaterally, non-labored respirations, symmetric chest rise, no use of accessory muscles Heart: Normal S1 and S2, no S3 or S4 appreciated. Normal rate and regular rhythm, no murmurs, rubs gallops. 2+ LE pitting edema b/l to lewis Abdomen: Soft, non-tender, non-distended, normal bowel sounds. No guarding or rebound tenderness. Musculoskeletal: Normal range of motion and strength, no tenderness or swelling Skin: Skin is warm, dry, no rashes or lesions. venous stasis dermatitis b/l LE Neurologic: Alert, awake and oriented x3. CN II-XII grossly intact. No focal neuro deficits. No signs of meningeal irritation noted. Psychiatric: Cooperative, appropriate mood and affect Objective Labs 07/25/25 04:45 07/25/25 04:45 Labs: Laboratory Results - last 24 hr 07/24/25 07/25/25 07/25/25 07:35 04:45 08:17 WBC 9.5 RBC 4.98 Hgb 15.7 Hct 45.4 MCV 91 MCH 31.5 MCHC 34.6 RDW Std Deviation 41.4 Plt Count 206 Neut % (Auto) 66 Lymph % (Auto) 24 Tyrrell % (Auto) 8 Eos % (Auto) 2 Baso % (Auto) 1 Neut # (Auto) 6.2 Lymph # (Auto) 2.3 Tyrrell # (Auto) 0.7 Eos # (Auto) 0.2 Baso # (Auto) 0.1 Immature Gran # (Auto) 0.04 H Absolute Nucleated RBC 0.00 Immature Gran % 0 Nucleated RBC % 0 PT 11.1 INR 1.0 APTT 29.6 Sodium 139 Potassium 3.7 D Chloride 101 Carbon Dioxide 26.7 Anion Gap 11 BUN 13 Creatinine 1.4 H Estim Creat Clear Calc 109.8 eGFR > 60 BUN/Creatinine Ratio 9 L Glucose 102 Calculated Osmolality 277 Calcium 9.2 Phosphorus 4.3 Magnesium 2.3 Hepatitis A IgM Ab Non Reactive Hep Bs Antigen Non Reactive Hep B Core IgM Ab Non Reactive Hepatitis C Antibody Non Reactive Quality Measures Quality Measures VTE prophylaxis Assessment & Plan Assessment Current Active Medications: Generic Name Dose Route Start Last Admin Trade Name Freq PRN Reason Stop Dose Admin Acetaminophen 650 mg 07/22/25 19:51 Acetaminophen 325 Mg Tablet PO 08/21/25 19:50 Q6H PRN Fever >100.3 Acetaminophen 650 mg 07/22/25 19:51 07/23/25 23:39 Acetaminophen 325 Mg Tablet PO 08/21/25 19:50 650 mg Q6H PRN Administration PAIN SCALE 1-3 (mild Heparin Sodium (Porcine) 5,000 unit 07/22/25 22:00 07/25/25 06:15 Heparin Sod Inj 5000 Unit/Ml Vial SC 08/05/25 21:59 Not Given Q8HR STEPHAN Hydralazine HCl 10 mg 07/23/25 17:59 07/25/25 04:22 Hydralazine Inj 20 Mg/Ml Vial IVP 08/22/25 17:58 10 mg Q4HR PRN Administration SBP >180 Losartan Potassium 100 mg 07/25/25 09:00 07/25/25 08:02 Losartan Potassium 25 Mg Tablet PO 08/24/25 08:59 100 mg QDAY STEPHAN Administration Metoprolol Succinate 25 mg 07/24/25 09:00 07/25/25 08:02 Metoprolol Succinate Xl 25 Mg Tabcr PO 08/23/25 08:59 25 mg On Hold: 07/25/25 08:46 QDAY STEPHAN Administration Ondansetron HCl 4 mg 07/22/25 19:51 07/24/25 01:22 Ondansetron Inj 2 Mg/Ml Inj 2 Ml IVP 08/21/25 19:50 4 mg Q6H PRN Administration NAUSEA OR VOMITING Protocol Sennosides 1 tab 07/23/25 18:08 Senna Tablet PO 08/22/25 18:07 QDAY PRN CONSTIPATION Protocol Spironolactone 25 mg 07/26/25 09:00 Spironolactone 25 Mg Tablet PO 08/25/25 08:59 QDAY STEPHAN Plan Mr. Gardner is a 49 y/o male with PMH afib, HTN, and chronic venous insufficiency who presented to the ED on 07/22 with elevated BP and headache and was admitted for hypertensive emergency. #Hypertensive emergency i/s/o medication noncompliance, resolving #Hypertension Hypertension, uncontrolled, primary vs. secondary 07/23 admission BP of 247/165 that climbed as high as 271/184 with throbbing headache and signs of end organ damage (visual changes, creatinine 1.6) Had apparently been on home metoprolol and losartan which had adequately controlled his BP but has not taken them for 4-5 months Given IV hydralazine 20 mg and IV labetalol 10 mg in the ED ASCVD Score: 8.9% risk of cardiovascular event in next 10 years, moderate to high intensity statin recommended Rx: -Started PO spironolactone 25 mg qD -Holding metoprolol due to bradycardia -Continue PO losartan 50 mg qD -Ordered cortisol labs, results pending -Ordered plasma renin activity, results pending -Ordered urine metanephrines, results pending -Continue IV hydralazine 10 mg q4HR prn for SBP>180 #BRADY vs. CKD Stage I i/s/o uncontrolled hypertension and recent hypertensive emergency 11/11 #Hypertensive nephrosclerosis vs. secondary hypertensive injury #Nephrotic range proteinuria 07/23 admission creatinine 1.6 (baseline unknown), eGFR 53 Suspect some level of CKD due to elevated random microalbumin 1360 and microalbumin/creatinine ratio 2030 which itself is possibly 2/2 hypertensive nephrosclerosis Creatinine eventually down-trended from 1.5 -> 1.3 with eGFR > 60 on 07/24, suggesting that patient still retains a decent amount of kidney function and is at most CKD Stage I Renal US showed moderate bilateral parenchymal scar formation and multiple benign kidney cysts bilaterally No history of diabetes, A1c this admission 5.2 Per Nephrology, some possible differentials for patient's intrinsic kidney disease may include FSGS or other glomerulopathies Dx: -Ordered US-guided renal biopsy, pending IR approval -Ordered ALEXANDRE, results pending -Ordered C3/C4 complement labs, results pending -Ordered hepatitis panel and HIV serology, all negative -Ordered urine random electrolytes, showed Na 82.2, K 16, Cl 57.8 (all WNL) -Ordered urine random creatinine, showed 71 (WNL) -Ordered urine random total protein, showed 175 (elevated) -Ordered urine 24HR total portein, showed 4714 (nephrotic-range proteinuria) Rx: -NPO after midnight -BP control as above -Monitor renal panel #Obesity class III Patient BMI 49.6 Dx: -Ordered lipid panel, showed triglycerides 142, cholesterol 178, LDL 112, HDL 38 #History of chronic venous insufficiency Patient reports PMH of chronic venous insufficiency On exam, patient was noted to have venous stasis dermatitis of the bilateral lower extremities as well as some varicose veins Rx: -Follow up with outpatient vascular surgery Hospital Management: Disposition: admitted for work-up and management of hypertensive emergency and BRADY Diet: Regular (NPO starting @ 00:01 on 07/26) GI Prophylaxis: not indicated Bowel Prophylaxis: Senna DVT Prophylaxis: SC Heparin 5K q8HR CODE STATUS: Full Code I have examined the patient and conferred with my attending, Dr. Matamoros , and my senior resident, Dr. Mcqueen, regarding them. Jorge Obregon DO PGY-1 Internal Medicine Attending Provider Attestation/Addendum I have examined the patient, reviewed labs and imaging findings, discussed the case with the resident(s), and reviewed entered orders. I agree with the plan of care as outlined in this note, with these additional summaries/recommendations: Patient is a 49-year-old male with a medical history of primary hypertension, obesity, dyslipidemia, and chronic venous insufficiency presents to [facility] emergency department on 07/22/2025 with chief complaint of headache and elevated blood pressure. Patient seen at bedside. No acute overnight events. Patient still endorses headache. On admission blood pressure was elevated to 247/160. Today patient's blood pressure is 172/100. Overall blood pressure improved but still not at goal. We will continue to adjust antihypertensive regimen. Suspect patient has undiagnosed IDA contributing to blood pressure and recommend outpatient sleep study. Secondary causes of hypertension ordered and pending results. Patient was also noted to have nephrotic range proteinuria with BRADY. On admission creatinine 1.6 and eGFR 53. Most likely related to hypertensive nephrosclerosis. Given the severity of proteinuria, nephrology was consulted. Patient was planned for renal biopsy today although will not be completed unless blood pressure improves. Continue to optimize blood pressure. Patient was counseled on weight loss and diet changes. A1c within normal limits. Patient updated on the plan and in agreement. All questions answered to satisfaction. Please see residents note for additional details and management. Dr. Saturnino MD
--- NOTE | 2025-07-25 09:53 | PC.NURSE ---
consulted Dr. Perdue regarding order for medical kidney biopsy, 0800 BP was 170/103 and current BP 154/105 with HR of 63, Dr. Perdue order to reschedule procedure for tomorrow when Blood pressure is better managed. Hopitalist Dr. Mcqueen made aware.
--- NOTE | 2025-07-25 11:36 | PC.SS ---
SS follow up note; Renal Biopsy pending, Patient will discharge back home when medically cleared.
--- NOTE | 2025-07-25 12:01 | PC.NURSE ---
aware of BP 172/100, no new orders at this time.
--- NOTE | 2025-07-25 14:14 | PC.NURSE ---
Pt. requesting to eat before taking newly ordered medication.
[2025-07-25] MEDS: SPIRONOLACTONE 25 MG TABLET PO (15:30)
[2025-07-25] MEDS: Magnesium Sulfate 2 GM Ivpb 2 GM/50 ML BAG IV (19:53)
[2025-07-26] VITALS (21 sets, daily range): BP systolic 113–184; BP diastolic 72–144; PULSE 60–83; RESP 12–20; TEMP 35.9–36.6; O2SAT 95–100; BMI 49.5
--- NOTE | 2025-07-26 07:00 | XR_ITS ---
EXAM: CT-guided biopsy left kidney. INDICATION: Renal dysfunction. DATE: 07/26/2025, 9:30 a.m. Comparison imaging: None. CTDI: 148 DLP: [id number] PROCEDURE: Aftera discussion of risks and benefits informed consent was obtained. The patient was brought to the CT scanner and placed in the prone position. Preliminary noncontrast enhanced CT of the abdomen and pelvis. Normal size and location of the bilateral kidneys. The inferior left renal pole was targeted for biopsy. The overlying skin was cleaned and draped in normal sterile surgical fashion. 10 cc's of 1% lidocaine was used for local anesthesia. Conscious sedation was begun with direct continuous nursing supervision. Using CT guidance an 18-gauge needle biopsy system was sequentially advanced into the inferior left renal pole. 3 18-gauge core biopsy samples were applied and given to pathology who deemed the samples sufficient at the time of the procedure. Needle was withdrawn. Hemostasis was achieved. The access site was covered with a sterile dressing. Postbiopsy CT was performed which showed no evidence of significant hematoma or other acute complication. The patient tolerated the procedure well and was transferred back to the holding area for post procedural observation IMPRESSION: Successful left renal biopsy as above.
[2025-07-26] MEDS: METOPROLOL SUCCINATE XL 25 MG TABCR PO (08:03)
[2025-07-26] MEDS: LOSARTAN POTASSIUM 25 MG TABLET 100 MG PO (08:03)
[2025-07-26] MEDS: niCARdipine 20 MG CAPSULE PO (08:04)
[2025-07-26] MEDS: SPIRONOLACTONE 25 MG TABLET 50 MG PO (08:04)
[2025-07-26] MEDS: LABETALOL INJ 5 MG/ML VIAL 20 ML 10 MG IVP ×2 (09:05→09:37)
[2025-07-26] MEDS: hydrALAZINE INJ 20 MG/ML VIAL 10 MG IVP (09:45)
[2025-07-26] MEDS: fentaNYL CIT INJ 50 mCg/ML AMP 2ML 100 MCG IVP (09:50)
[2025-07-26] MEDS: MIDAZOLAM INJ 1 MG/ML VIAL 2 ML 2 MG IVP (09:50)
[2025-07-26] MEDS: LIDOCAINE INJ PF 1% 30 ML VIAL 10 ML EPID (09:59)
--- NOTE | 2025-07-26 11:33 | ESPR_ITS ---
Documentation for date of: 07/26/25 Subjective Subjective Interval history: Reason for consult: Proteinuria; possible nephrotic syndrome History of present illness: Mr. Gardner is a 49-year-old male with a past medical history of atrial fibrillation, hypertension, and chronic venous insufficiency who was admitted on 07/22/2025 with hypertensive emergency (BP 271/184) and headache. Nephrology was consulted for evaluation of proteinuria and possible nephrotic syndrome. Today, the patient was seen and examined. He reports no complaints, denies shortness of breath, chest pain, nausea, vomiting, dysuria, or hematuria. He states that he had a right kidney biopsy more than 8 years ago in [facility]. He recalls being told that he had a kidney disease similar to his mother?s, who was diagnosed with nephrotic syndrome?he believes the term ?FSGS? sounds familiar, though he is not certain. He currently denies any new symptoms, reports adequate urine output, and no recent change in weight. There is bilateral lower extremity edema; however, he has known venous insufficiency, making the etiology uncertain. No orthopnea or paroxysmal nocturnal dyspnea reported. Appetite and energy level are stable. 07/24/2025: Patient doing well today, sitting comfortably in bed, no complaints. Denies dyspnea, chest pain, or urinary symptoms. Appetite and urine output remain normal. BP 179/104, HR 64 bpm. Labs: WBC 9.9, Hgb 16.4 (from 14.4 yesterday), MCV 90, Platelets 207, Na 138, K 4.2, Cl 101, CO2 28, Cr 1.3 (down from 1.6 on admission 07/22/25), Ca 9.3, Mg 2.3, Phos 2.9, Albumin 4.2, A1c 5.2. UTOX: negative. Hepatitis panel & HIV: negative. Urine Studies: 24-hour urine total protein 4714 mg (nephrotic range), urine total protein (spot) 173 mg, total urine volume 2725 mL. Renin activity, aldosterone, and cortisol pending. 07/26/2025: Patient was seen and examined at bedside. He was sleeping comfortably and in no acute distress. No new complaints reported per nursing staff. He is scheduled for renal biopsy later today. No shortness of breath, chest pain, nausea, or urinary complaints noted overnight. Vital Signs: BP 181/90, HR 79 bpm. Labs, medications reviewed. Patient wants to go home Postbiopsy. Review of Systems Review of Systems Narrative Review of Systems: CONSTITUTIONAL: Patient denies any fever, chills. HEENT: Denies any visual disturbances or hearing problems. CARDIOVASCULAR: Patient denies any chest pain, shortness of breath, swelling in the lower extremities. PULMONARY: Patient denies any shortness of breath, cough. GASTROINTESTINAL: Patient denies any abdominal pain, constipation, nausea, vomiting, diarrhea. GENITOURINARY: Patient denies any urinary symptoms of burning or frequency or hematuria, denies any form in the urine. SKIN: Denies any rash. MUSCULOSKELETAL: Denies any muscular skeletal problems of joint pains. NEUROLOGICAL: Denies any neurological problems of strokes, seizures or confusion. Denies any memory problems. PSYCHIATRIC: Denies any depression or anxiety. LYMPHATICS : No lymphadenopathy Exam Vital Signs Temp Pulse Resp BP Pulse Ox O2 Del Method O2 Flow Rate 36.6 C 71 14 131/72 H 95 Room Air 3 07/26/25 10:17 07/26/25 10:45 07/26/25 10:45 07/26/25 10:45 07/26/25 10:45 07/26/25 10:45 07/26/25 10:08 Narrative Exam General: Alert, oriented ?3, in no acute distress. HEENT: No scleral icterus or conjunctival pallor. Neck: No JVD. Lungs: Clear to auscultation bilaterally. Cardiac: Regular rate and rhythm; no murmurs, rubs, or gallops. Abdomen: Soft, non-tender, non-distended. Extremities: Trace to 1+ pitting edema bilaterally; chronic venous stasis changes. Skin: Warm, dry, no rashes. Neuro: No focal deficits. Objective Labs 07/25/25 04:45 07/25/25 04:45 Assessment & Plan Assessment and plan (1) Headache: Status: Acute Assessment and plan: # Proteinuria # Possible Nephrotic Syndrome # Nephrotic range proteinuria Significant proteinuria (24-hour total 4.7 g) with normal albumin level and no hyperlipidemia. No diabetes (A1c 5.2). Family history of nephrotic syndrome (mother), unconfirmed. Prior renal biopsy >8 years ago reportedly in [place]; possible FSGS. Plan: * Ordered renal biopsy to confirm etiology (possible FSGS vs other glomerulopathy). * Proceed with renal biopsy today as planned. * Pending ALEXANDRE, C3, C4, renin activity, aldosterone, and cortisol levels. * Continue to monitor renal function and urine output daily. * Avoid nephrotoxins (NSAIDs, IV contrast). * BP control as per primary team; optimize for renal protection. * Will review biopsy results once available and adjust management accordingly. # Hypertensive Nephrosclerosis vs Secondary Hypertensive Injury # Bilateral Renal Cortical Scarring Admission Cr 1.6 -> improved to 1.4. BP remains elevated today (181/90). Ultrasound shows moderate bilateral scarring and benign cysts. Kidneys preserved in size (11.9 cm bilaterally) Plan: * Continue BP control * Resume ARB once renal function remains stable. * Continue beta-prashant per primary team. * Monitor daily BMP. * Continue monitoring renal function. * Follow up renal biopsy. # Hypokalemic Metabolic Alkalosis Likely secondary to mineralocorticoid excess (primary hyperaldosteronism vs secondary hyperreninemia from renal artery stenosis). Potassium 3.7 with bicarbonate 26 Plan: * Pending plasma renin activity and aldosterone levels. * Avoid unnecessary diuretics. * Replace potassium as needed. # Chronic Venous Insufficiency Mild bilateral LE edema, possibly contributing to lower extremity swelling. Plan: * Recommend compression stockings, leg elevation. * Differentiate venous edema from possible nephrotic edema once biopsy returns. Additional Assessment & Plan Additional Plan: 49-year-old male with uncontrolled hypertension, nephrotic-range proteinuria, and possible nephrotic syndrome, scheduled for renal biopsy today. Labs show mild uptrend in creatinine, stable electrolytes, and ongoing evaluation for secondary causes of hypertension and proteinuria. # Proteinuria # Possible Nephrotic Syndrome # Nephrotic range proteinuria Significant proteinuria (24-hour total 4.7 g) with normal albumin level and no hyperlipidemia. No diabetes (A1c 5.2). Family history of nephrotic syndrome (mother), unconfirmed. Prior renal biopsy >8 years ago reportedly in [place]; possible FSGS. Plan: * Ordered renal biopsy to confirm etiology (possible FSGS vs other glomerulopathy). * Proceed with renal biopsy today as planned. * Pending ALEXANDRE, C3, C4, renin activity, aldosterone, and cortisol levels. * Continue to monitor renal function and urine output daily. * Avoid nephrotoxins (NSAIDs, IV contrast). * BP control as per primary team; optimize for renal protection. * Will review biopsy results once available and adjust management accordingly. # Hypertensive Nephrosclerosis vs Secondary Hypertensive Injury # Bilateral Renal Cortical Scarring Admission Cr 1.6 -> improved to 1.4. BP remains elevated today (181/90). Ultrasound shows moderate bilateral scarring and benign cysts. Kidneys preserved in size (11.9 cm bilaterally) Plan: * Continue BP control * Resume ARB once renal function remains stable. * Continue beta-prashant per primary team. * Monitor daily BMP. * Continue monitoring renal function. * Follow up renal biopsy. # Hypokalemic Metabolic Alkalosis Likely secondary to mineralocorticoid excess (primary hyperaldosteronism vs secondary hyperreninemia from renal artery stenosis). Potassium 3.7 with bicarbonate 26 Plan: * Pending plasma renin activity and aldosterone levels. * Avoid unnecessary diuretics. * Replace potassium as needed. # Chronic Venous Insufficiency Mild bilateral LE edema, possibly contributing to lower extremity swelling. Plan: * Recommend compression stockings, leg elevation. * Differentiate venous edema from possible nephrotic edema once biopsy returns. * * * Renal cabrera stable for discharge after biopsy done Quality - progress note Quality Measures Quality Measures: VTE prophylaxis Reason for Continued Stay Reason for Continued Stay: further monitoring
--- NOTE | 2025-07-26 13:46 | ESDS_ITS ---
Planned Discharge Date 07/26/25 DS: Providers Provider Date of admission: 07/22/25 20:19 Primary care physician: Physician No Primary/Family Admitting Provider: Stacey Smalls DO Attending Provider on Admission: Nicolas Matamoros MD Consults: 07/24/25 07:58 Consult to Nephrology Routine Comment: Consulting Provider: Chevy Jones Attending Provider on DC: Nicolas Matamoros MD Discharging Provider: Nicolas Matamoros MD Diagnosis Problem List Completed Was Problem List Reviewed/Reconciled?: Yes Hospital Course - Hospitalist Hospital Course Hospital course: Patient is a 49-year-old male with a medical history of uncontrolled primary hypertension, obesity, and chronic venous insufficiency who presented to [facility] emergency department on 07/22/2025 with chief complaint of headache and elevated blood pressure. Patient was diagnosed with hypertensive emergency on admission with initial BP reading 271/184. Patient has underlying primary hypertension but stopped taking his medications. Given that patient's blood pressure was significantly elevated, renin, aldosterone, and cortisol were ordered to rule out secondary causes of hypertension. These results are pending at the time of discharge and can follow-up with PCP/nephrology for results. Patient will be discharged with losartan 100 mg p.o. daily, metoprolol succinate 25 mg p.o. daily, nicardipine 20 mg p.o. twice daily, and spironolactone 50 mg p.o. daily. Recommend low-salt diet. Patient encouraged to purchase blood pressure cuff and keep blood pressure log. I suspect patient's etiology for uncontrolled blood pressure may be related to undiagnosed obstructive sleep apnea. Patient endorses morning fatigue and morning headaches. Partner states that patient snores. Recommend outpatient sleep study as STOP-BANG questionnaire is positive. Recommend weight loss. Patient was also found to have acute kidney injury on admission. 24-hour total protein urine collection revealed nephrotic range proteinuria and nephrology was consulted. Possibly related to hypertensive nephrosclerosis sclerosis versus other nephrotic syndrome. Patient underwent renal biopsy on 07/26/2025. He tolerated the procedure well. Patient was given strict return precautions if any evidence of bleeding or discharge or significant pain at 5 site. Patient should follow-up with nephrology for biopsy results. He will be discharged with losartan to prevent worsening proteinuria. Patient has obesity class III and counseled on weight loss. Continue Tylenol as needed for headaches. Patient updated on the plan and in agreement. All questions answered to satisfaction. Patient is medically cleared for discharge on 07/26/2025. Status at Discharge Overall status at discharge: patient is progressing back to baseline Time Spent with Patient Time attestation: Total time spent providing and/or coordinating discharge services: Time spent: Greater than 30 minutes Discharge Results Labs Diagrams: 07/25/25 04:45 07/25/25 04:45 Exam Vital Signs Temp Pulse Resp BP Pulse Ox O2 Del Method O2 Flow Rate 96.9 F 60 18 134/72 H 96 Room Air 3 07/26/25 12:00 07/26/25 12:00 07/26/25 12:00 07/26/25 12:00 07/26/25 12:00 07/26/25 12:00 07/26/25 10:08 Narrative General: No acute distress Eye: EOMI, normal conjunctiva, no scleral icterus HENT: Normocephalic, atraumatic, moist oral mucosa Neck: Supple, non-tender Lungs: Clear to auscultation bilaterally, non-labored respirations, symmetric chest rise Heart: Normal S1 and S2, no S3 or S4 appreciated. Normal rate and regular rhythm, no murmurs, rubs gallops. Abdomen: Soft, non-tender, non-distended, normal bowel sounds. No guarding or rebound tenderness. Musculoskeletal: Normal range of motion and strength, no tenderness or swelling Skin: Skin is warm, dry, no rashes or lesions. venous stasis dermatitis b/l LE Neurologic: Alert, awake and oriented x3. No focal neuro deficits. No signs of meningeal irritation noted. Psychiatric: Cooperative, appropriate mood and affect Discharge Plan Plan Patient Disposition: HOME (Self Care) Disposition Comment: Patient stable for discharge home Patient condition on transfer: Stable Health Concerns: Follow-up with primary care provider at [facility] within 7 days of discharge Take antihypertensives as prescribed Low-salt diet and encourage weight loss Recommend outpatient sleep study to rule out obstructive sleep apnea Follow-up with nephrology, Dr. Jones in 7 to 10 days from discharge for kidney biopsy results Recommend patient obtain blood pressure cuff and keep blood pressure log at home, he will need close outpatient follow-up for further titration of antihypertensive regimen Prescriptions/Referrals Prescriptions/Med Rec: New losartan 100 mg tablet 100 mg PO QDAY 30 Days Qty: 30 0RF metoprolol succinate 25 mg tablet extended release 24 hr 25 mg PO QDAY 30 Days Qty: 30 0RF spironolactone 50 mg tablet 50 mg PO QAM 30 Days Qty: 30 0RF nicardipine 20 mg capsule 20 mg PO BID 30 Days Qty: 60 0RF No Action metoprolol tartrate 25 mg tablet 50 mg PO BID Patient Comments: per pt dose ordered not taking at home losartan 25 mg tablet 50 mg PO QDAY Referrals: [facility] [Outside] No Primary/Family,Physician [Primary Care Provider] Chevy Jones MD [Physician, Nephrology] Patient/Caregiver Discharge Instructions Discharge Activity: activity as tolerated Education Materials: Controlling High Blood Pressure, Self-Care for Headaches Print Language: [place] Citizen Stand Alone Forms: Anneliese Award Info., Patient Portal Info Letter Discharge Order Discharge Orders: Discharge (Routine); Ordered 07/26/25 Ordered By: Nicolas Matamoros Quality Discharge Quality Measures VTE prophylaxis
--- NOTE | 2025-07-26 14:28 | PC.CC ---
Confirmed with [facility] d/c med nicardipine covered per MD request.
[2025-07-29 06:39] LABS: Renin Activity, Plasma* 3.12 ng/mL/h (0.25-5.82)
[2025-07-31 06:50] LABS: ANA Screen, IFA NEGATIVE (NEGATIVE); Complement Component C3* 184 mg/dL (82-185); Complement Component C4c* 30 mg/dL (15-53)
[2025-07-31 06:51] LABS: Osmolality, Urine* 561 mOsm/kg (50-1200)
[2025-08-02 06:41] LABS: Aldosterone* 10 ng/dL; Cortisol,total,LC/MS/MS* 21.5 mcg/dL
== END 2025-07-26 15:27 | disposition home or self-care (01) | DRG 305 ==
LOC: SERX 19:15 → SERHOLD 20:21 → S2NX 07-23 01:09
PROVIDERS: Nurse Practitioner Family; Radiology Diagnostic Radiology; Student in an Organized Health Care Education/Training Program; Admitting Provider Internal Medicine; Emergency Provider Family Medicine; Visit Provider Student in an Organized Health Care Education/Training Program
DX: I16.1 Hypertensive emergency (principal); Z68.42 Body mass index [BMI] 45.0-49.9, adult; N17.9 Acute kidney failure, unspecified; E87.3 Alkalosis; E66.813 Obesity, class 3; I48.91 Unspecified atrial fibrillation; I87.2 Venous insufficiency (chronic) (peripheral); E78.5 Hyperlipidemia, unspecified; E87.6 Hypokalemia; Z59.71 Insufficient health insurance coverage; Z79.899 Other long term (current) drug therapy; Z88.0 Allergy status to penicillin; Z91.128 Patient's intentional underdosing of medication regimen for other reason; Z91.148 Patient's other noncompliance with medication regimen for other reason
CPT/HCPCS: 36415; 70450; 71045; 76770; 77012; 80048; 80053; 80061; 80074; 80307; 81001; 82040; 82043; 82088; 82436; 82533; 82570; 83036; 83615; 83735; 83835; 83880; 83935; 84100; 84133; 84156; 84244; 84300; 84443; 84484; 85025; 85610; 85730; 86038; 86160; 86703; 93005; 93306; 96372; 96374; 96375; 96376; 99152; 99284; A4649; J0360; J1644; J1885; J2250; J2270; J2405; J3010; J3475; J3490; A9270; J1920

== ENCOUNTER → 2025-08-28 | Outpatient (CLI) | payer BC, SELFPAY ==
[2025-08-28 14:28] LABS: Albumin, Serum 4.7 gm/dL (3.5-5.0); Anion Gap 9 (7-16); BUN/Creatinine Ratio 15 Ratio (12-20); Blood Urea Nitrogen 26 mg/dL (9-23); Calcium 9.7 mg/dL (8.3-10.6); Calcium (Corrected) 9.7 mg/dL (8.5-10.1); Carbon Dioxide 28.5 mMol/L (20.0-31.0); Chloride 103 mMol/L (98-107); Creatinine (Component) 1.7 mg/dL (0.6-1.3); Glucose 95 mg/dL (74-106); Osmolality,Calculated 284 (275-295); Phosphorous 3.2 mg/dL (2.4-5.1); Potassium 4.8 mMol/L (3.4-5.1); Sodium 140 mMol/L (136-145); eGFR 49 See Note
[2025-08-28 14:55] LABS: Collection Type, Urine Clean Catch; Squamous Epithelial Cell,Urine 0 /hpf (0-5)
[2025-08-28 15:24] LABS: Creatinine,Random Urine 87 mg/dL (30-125); Protein Total, Random Urine 72 mg/dL (1-14)
[2025-08-28 15:43] LABS: Bacteria,Urine Rare; Bilirubin,Urine Negative (Negative); Blood,Urine 2+ (Negative); Clarity,Urine Clear (Clear/Hazy); Color,Urine Lt-Yellow (Lt Yel-Yel); Glucose, Urine Negative (Negative); Ketones,Urine Negative (Negative); Leukocyte Esterase,Urine Negative (Negative); Nitrite,Urine Negative (Negative); PH,Urine 6.0 (5.0-7.0); Protein,Urine 1+ (Neg - Trace); RBC,Urine 9 /hpf (0-3); Specific Gravity,Urine 1.017 (1.001-1.035); Urobilinogen,Urine Negative mg/dL (0.0-1.0); WBC,Urine < 1 /hpf (0-5)
== END | disposition home or self-care (01) ==
PROVIDERS: PCP Internal Medicine; Referring Provider Internal Medicine; Visit Provider Internal Medicine
DX: I12.9 Hypertensive chronic kidney disease with stage 1 through stage 4 chronic kidney disease, or unspecified chronic kidney disease (principal); N18.30 Chronic kidney disease, stage 3 unspecified
CPT/HCPCS: 36415; 80069; 81001; 82570; 84156